=== PATIENT | male | born 1955 | race Caucasian/White ===

== ENCOUNTER 2018-12-03 07:58 | Day surgery (SDC) | payer OTHER ==
[~2018-12-03] VITALS: Ht 162.6 cm; Wt 61.0 kg
[~2018-12-03 07:58] MED LIST: HYDACE10B PO; IBUP800; NAPR500 PO
[2018-12-03] MEDS ORDERED: ASPI81CH PO (08:48)
[2018-12-03] MEDS ORDERED: CYCL10 PO (08:48)
[2018-12-03] MEDS ORDERED: Lisinopril2.5 MG PO (08:49)
[2018-12-03] MEDS ORDERED: Flomax0.4 MG PO (08:49)
[2018-12-03] MEDS ORDERED: TOPI25 PO (08:50)
[2018-12-03] MEDS ORDERED: CHOL10002 PO (08:51)
[2018-12-03] MEDS ORDERED: CLOP75 PO (14:42)
--- NOTE | 2018-12-03 16:01 | NUR ---
DISCHARGE PT REMAINED A&OX3 AND DENIED ANY PAIN DURING RECOVERY. PT DENIED LUNCH PROVIDED. PT ABLE TO HELP STAFF WITH DRESSING AND PIVOTED TO WHEELCHAIR WITH SBA. IV DC'D WITH TIP IN TACT. PLAVIX AND ASPIRIN CONTRACT GONE OVER AND SIGNED. DISCHARGE PAPERWORK GONE OVER WITH PT AND SISTER. SISTER VERBALLY STATED THE UNDERSTANDING OF THE DISCHARGE PAPERWORK GIVEN AND DENIED ANY QUESTIONS AT THIS TIME. SISTER STATED SHE WILL BE STAING AT THE PT'S HOUSE TONIGHT. R [facility] SITE CDI-NO HEMATOMA NOTED. PT STARTED TO BECOME NERVOUS AND STATED HE WANTED TO GET OUT OF HERE. PT WANTED TO HAVE SISTER WHEEL HIM OUT. PT WHEELED OUT BY SISTER IN HIS OWN WHEEL CHAIR WITH BELONGINGS. [facility], ADRESSED TO ANIYA HOLLIS-CONFIRMATION IN PATIENTS CHART.
== END 2018-12-03 16:00 | disposition home or self-care (01) ==
LOC: MHTC 07:58
DX: I70.245 Atherosclerosis of native arteries of left leg with ulceration of other part of foot (principal); I70.243 Atherosclerosis of native arteries of left leg with ulceration of ankle; I10 Essential (primary) hypertension; F17.210 Nicotine dependence, cigarettes, uncomplicated
CPT/HCPCS: 37221; 37226; 75625; 75710; 75716; 75774; 85347; 99152; 99153; C1725; C1760; C1769; C1874; C1876; C1887; C1894; C2623; J1644; J2250; J3010; J7030; J7040; Q9967

== ENCOUNTER 2019-09-29 07:07 | Inpatient (IN) | payer OTHER ==
[~2019-09-29] VITALS: Ht 152.4 cm; Wt 47.0 kg
[~2019-09-29 07:07] MED LIST changes: +ASPI81CH PO; +CHOL10002 PO; +CLOP75 PO; +CYCL10 PO; +Flomax0.4 MG PO; +Lisinopril2.5 MG PO; +TOPI25 PO
[2019-09-29 07:46] LABS: BASOPHILS ABSOLUTE AUTO 0.09 K/mm3 (0.00-0.23); BASOPHILS PERCENT AUTO 1 % (0-2); EOSINOPHILS ABSOLUTE AUTO 0.16 K/mm3 (0.00-0.68); EOSINOPHILS PERCENT AUTO 1 % (0-6); Hematocrit 44.1 % (37.0-53.0); Hemoglobin 14.4 g/dL (13.5-17.5); IMMATURE GRAN ABSOLUTE AUTO 0.05 K/mm3 (0.00-0.10); IMMATURE GRAN PERCENT AUTO 0 % (0-1); LYMPHOCYTES ABSOLUTE AUTO 2.13 K/mm3 (0.84-5.20); LYMPHOCYTES PERCENT AUTO 17 % (21-46); MONOCYTES ABSOLUTE AUTO 0.65 K/mm3 (0.16-1.47); MONOCYTES PERCENT AUTO 5 % (4-13); Mean Corpuscular HGB 31.8 pg (26.0-34.0); Mean Corpuscular HGB Conc 32.7 g/dL (31.5-36.5); Mean Corpuscular Volume 97 fL (80-100); Mean Platelet Volume 9.6 fL (9.1-12.4); NEUTROPHILS ABSOLUTE AUTO 9.28 K/mm3 (1.96-9.15); NEUTROPHILS PERCENT AUTO 75 % (41-73); Platelet Count 317 K/mm3 (150-400); RDW Coefficient Variation 12.2 % (11.7-14.2); RDW Standard Deviation 43.9 fL (35.1-46.3); Red Blood Cell Count 4.53 M/mm3 (4.30-5.90); White Blood Cell Count 12.36 K/mm3 (4.00-11.30)
[2019-09-29 08:01] LABS: Alanine Aminotransfer (ALT/SGP 22 U/L (12-78); Albumin, Blood 4.1 g/dL (3.4-5.0); Alk Phos 85 U/L (50-136); Anion Gap 16 mmol/L (6-16); Aspartate Aminotrans (AST/SGOT 11 U/L (12-37); Bilirubin, Total 0.2 mg/dL (0.1-1.0); Blood Urea Nitrogen 82 mg/dL (8-24); CO2, Blood 16 mmol/L (21-32); Calcium, Blood 8.7 mg/dL (8.5-10.1); Chloride, Blood 106 mmol/L (98-108); Creatinine, Blood 4.31 mg/dL (0.60-1.20); Globulin, Blood 4.3 g/dL (2.2-4.0); Glomerular Filtration Rate 15 (60-); Glucose, Blood 116 mg/dL (70-99); Potassium, Blood 4.2 mmol/L (3.5-5.5); Sodium, Blood 138 mmol/L (136-145); Total Protein, Blood 8.4 g/dL (6.4-8.2); Troponin I <0.015 ng/mL (0.000-0.040)
[2019-09-29 15:12] LABS: Source, Urine Clean Catch
[2019-09-29 15:32] LABS: Appearance, Urine Clear (Clear); Bilirubin, Urine Neg (Neg); Blood, Urine 4+ (Neg); Color, Urine Yellow (P-Yellow); Glucose Qualitative, Urine 1+ (Neg); Ketones, Urine 1+ (Neg); Leukocyte Esterase, Urine Neg (Neg); Nitrite, Urine Neg (Neg); Protein, Urine 2+ (Neg); Specific Gravity, Urine 1.015 (1.003-1.022); Urobilinogen, Urine NORM (Normal)
[2019-09-29 15:41] LABS: Bacteria Few /hpf; Renal Epithelial Few /hpf (0-Rare); Squamous Epithelial Cells Rare /hpf (Few)
[2019-09-29 16:10] LABS: Albumin, Blood 3.5 g/dL (3.4-5.0); Anion Gap 15 mmol/L (6-16); Blood Urea Nitrogen 81 mg/dL (8-24); Bun/Creatinine Ratio 22.6 (12.0-20.0); CO2, Blood 15 mmol/L (21-32); Chloride, Blood 111 mmol/L (98-108); Creatinine, Blood 3.58 mg/dL (0.60-1.20); Glomerular Filtration Rate 18 (60-); Glucose, Blood 112 mg/dL (70-99); Phosphorus, Blood 5.3 mg/dL (2.5-4.9); Potassium, Blood 4.6 mmol/L (3.5-5.5); Sodium, Blood 141 mmol/L (136-145)
--- NOTE | 2019-09-29 17:44 | NUR ---
PATIENT A/OX3, UNABLE TO STATE DATE. CALM AND COOPERATIVE WITH CARE. VSS, ON RA. HX OF CVA WITH L SIDED DEFICIT. W/C BOUND AT BASELINE. SACRUM RED, ABRASIONS TO TOES BILATERAL FROM GETTING THEM STUCK IN HIS W/C. FEET ARE VERY COLD AND TOES CYANOTIC, PICS ON CHART. HX OF PVD WITH STENTS PLACED IN LLE. 18G IV TO R AC WNL, NS INFUSING @ 150/HR. PATIENT ON A RENAL DIET, POOR APPETITE. PERALES PLACED TODAY PER MD ORDER AND U/A SENT TO LAB. CHEST PAIN HAS IMPROVED, PATIENT HAS CHRONIC BACK. PATIENT LIVES AT HOME WITH HIS MOTHER AND HAS A CAREGIVER A FEW DAYS A WEEK.
[2019-09-30 05:12] LABS: Hematocrit 33.9 % (37.0-53.0); Mean Corpuscular HGB 31.8 pg (26.0-34.0); Mean Corpuscular HGB Conc 32.4 g/dL (31.5-36.5); Mean Corpuscular Volume 98 fL (80-100); Mean Platelet Volume 9.6 fL (9.1-12.4); Platelet Count 259 K/mm3 (150-400); RDW Coefficient Variation 12.1 % (11.7-14.2); RDW Standard Deviation 44.1 fL (35.1-46.3); Red Blood Cell Count 3.46 M/mm3 (4.30-5.90); White Blood Cell Count 8.17 K/mm3 (4.00-11.30)
[2019-09-30 05:31] LABS: Anion Gap 11 mmol/L (6-16); Blood Urea Nitrogen 58 mg/dL (8-24); Bun/Creatinine Ratio 23.9 (12.0-20.0); CO2, Blood 14 mmol/L (21-32); Calcium, Blood 7.3 mg/dL (8.5-10.1); Chloride, Blood 117 mmol/L (98-108); Creatinine, Blood 2.43 mg/dL (0.60-1.20); Glomerular Filtration Rate 29 (60-); Glucose, Blood 72 mg/dL (70-99); Phosphorus, Blood 2.7 mg/dL (2.5-4.9); Potassium, Blood 3.8 mmol/L (3.5-5.5); Sodium, Blood 142 mmol/L (136-145)
--- NOTE | 2019-09-30 05:56 | NUR ---
SHIFT SUMMARY PT IS A 63 Y/O MALE, ADMITTED FOR RENAL FAILURE. PT IS A&O X 2-3, UNCERTAIN OF DATE/TIME. WHEELCHAIR BOUND AT BASELINE WITH A L-SIDE DEFICIT FROM A PREVIOUS CVA. PT HAS A POOR APPETITE, AND ONLY WANTED WATER DURING THE NIGHT. BLE TOES ARE CYANOTIC WITH SMALL ABRASIONS NOTED. PT REPORTED LLE MUSCLE SPASMS, NO COMPLAINTS OF PAIN, NAUSEA OR SOB. PT RECEIVING CONTINUOUS NS @ 150 ML/HR. VITAL SIGNS STABLE. NO ACUTE CHANGES IN PT CONDITION NOTED. WILL CONTINUE TO MONITOR AND TREAT PER EMAR UNTIL HAND OFF TO DAY SHIFT RN.
--- NOTE | 2019-09-30 12:35 | NUR ---
Spiritual care visit conducted. Patient is lying in bed with his head under the covers but quickly awakens and uncovers his head at the sound of his name. Patient immediately tells me that he is an "asshole" and that if I could put a gun to his head and pull the trigger then I would be doing him a favor. This led to a long discussion about meaning, purpose, value and dignity. We also discussed his anger at God and his frustrations with the limitations on his life. I highlighted the many things patient has overcome, the good that he does bring to his mother and sister and about the courage he does have everyday. I listen empathically, normalize patient's experience, reinforce helpful attitudes and practices, heard confession and provide pastoral children counselor and prayer. Patient responds well and shows of improved hope and catharsis. I will continue to remain available to patient and family.
--- NOTE | 2019-09-30 18:01 | NUR ---
PATIENT A/OX3, UP TO W/C WITH 1 ASSIST. WC BOUND AT BASELINE DUE TO L SIDED WEAKNESS FROM CVA 20+ YRS AGO. PATIENT VERY PAINFUL TO BLE, DENIED ANY CHEST PAIN. FLEXERIL AND TRAMODOL ORDERED TO TREAT PAIN WITH GOOD RELIEF. TOES CYANOTIC, SCABS TO MUTIPLE TOES FROM WC. PATIENT ATE BETTER THIS SHIFT. SHWITCHED TO REGULAR DIET. KIDNEY FUNCION IMPROVING. FLUIDS CHANGED TO LR@ 200ML/HR X2 BAGS. PATIENT IS CALM AND COOPERATIVE WITH CARE AND CALLS APPROPRIATELY FOR ASSISTANCE.
[2019-10-01 06:11] LABS: Bun/Creatinine Ratio 24.5 (12.0-20.0); Calcium, Blood 7.7 mg/dL (8.5-10.1); Creatinine, Blood 1.51 mg/dL (0.60-1.20); Potassium, Blood 4.1 mmol/L (3.5-5.5)
--- NOTE | 2019-10-01 06:35 | NUR ---
SHIFT SUMMARY PT IS A 63 Y/O MALE, ADMITTED FOR ACUTE RENAL FAILURE. HE IS A&O X 4, MILD DEPRESSED AND WITHDRAWN IN ASPECT AT TIMES, COOPERATIVE WITH CARE. PT IS WHEELCHAIR BOUND AT BASELINE, PERALES IN PLACE FOR RETENTION PATENT AND DRAINING DARK JAYLON URINE. PT FINISHED 2L OF LR @ 200 ML/HR DURING THE NIGHT, CURRENTLY SALINE LOCKED. HE WAS MEDICATED FOR PAIN AND MUSCLE SPASMS IN HIS FEET WITH PRN TRAMADOL AND FLEXERIL. NO COMPLAINTS OF NAUSEA OR SOB. VITAL SIGNS STABLE. NO ACUTE CHANGES IN PT CONDITION NOTED. WILL CONTINUE TO MONITOR AND TREAT PER EMAR UNTIL HAND OFF TO DAY SHIFT RN.
--- NOTE | 2019-10-01 08:22 | NUR ---
CBG 44 ON CHECK THIS MORNING, PT STATES HE FEELS 'NOT GOOD'. 2 PACKETS OF JUICE GIVEN DR ANN CALLED AND INFORMED. RECHECK AT 15 MINUTES IS 55. WILL CONTINUE TO MONITOR, PT NOW CBG ACHS PER DR ANN
[2019-10-02 05:31] LABS: Bun/Creatinine Ratio 20.8 (12.0-20.0); Calcium, Blood 7.8 mg/dL (8.5-10.1); Creatinine, Blood 1.3 mg/dL (0.60-1.20); Potassium, Blood 4.1 mmol/L (3.5-5.5)
--- NOTE | 2019-10-02 06:16 | NUR ---
SHIFT SUMMARY PT [id number]. PT UPSET DURING SHIFT WITH HIS SITUATION, ANGRY THAT HIS PERSONAL WHEELCHAIR WAS NOT HERE. PT ABLE TO BE TALKED TO AND HE CALMED DOWN. PT COOPERATIVE WITH CARE. REPOSITIONING SELF IN BED FREQUENTLY. PT UNABLE TO VOID DURING SHIFT, STRAIGHT CATHED PER PROTOCOL. PT TOLERATED WELL. MEDICATED FOR PAIN PER EMAR.
--- NOTE | 2019-10-02 13:10 | NUR ---
MORNING BLOOD SUGAR WAS 59. APPLE JUICE GIVEN, DR BERKOWITZ INFORMED, TM
--- NOTE | 2019-10-02 17:20 | NUR ---
SHIFT SUMMARY HERB WAS ABLE TO URINATE A FEW TIMES TODAY AFTER NEEDING CATHETERIZATION LAST NIGHT. HE CANNOT URINATE SITTING DOWN IN URINAL, HE NEEDS A01 TO BSC AND CAN URINATE THERE. VERY POOR PO INTAKE, AND CBGS ON THE LOW SIDE. MORNING CBG OF 59--DR BERKOWITZ MADE AWARE. DRANK JUICE AND IT INCREASED. HAD ABD ULTRASOUND THIS MORNING. PT EXPRESSES DESIRE TO GO HOME, EDUCATED ON RISKS OF LEAVING BEFORE SEEING DR VELAZQUEZ ON FRIDAY. CALLED PALLIATIVE, THEY WILL FOLLOW. RECEIVED OXY FOR PAIN TO GOOD EFFECT. TOES STILL PURPLISH. WCTM
[2019-10-03 05:27] LABS: Alanine Aminotransfer (ALT/SGP 21 U/L (12-78); Albumin, Blood 2.9 g/dL (3.4-5.0); Albumin/Globulin Ratio 0.9 (0.8-1.8); Alk Phos 72 U/L (50-136); Anion Gap 11 mmol/L (6-16); Aspartate Aminotrans (AST/SGOT 22 U/L (12-37); Bilirubin, Total 0.4 mg/dL (0.1-1.0); Blood Urea Nitrogen 20 mg/dL (8-24); Bun/Creatinine Ratio 18.2 (12.0-20.0); CHOL/HDL RATIO 6.3; CO2, Blood 20 mmol/L (21-32); Calcium, Blood 7.9 mg/dL (8.5-10.1); Chloride, Blood 110 mmol/L (98-108); Cholesterol 194 mg/dL (50-200); Globulin, Blood 3.3 g/dL (2.2-4.0); Glomerular Filtration Rate >60 (60-); Glucose, Blood 76 mg/dL (70-99); HDL Cholesterol 31 mg/dL (>39); LDL/HDL RATIO 3.6; Low Density Lipoprotein Chol 113 mg/dL (0-110); Potassium, Blood 3.8 mmol/L (3.5-5.5); Sodium, Blood 141 mmol/L (136-145); Total Protein, Blood 6.2 g/dL (6.4-8.2); Triglycerides 250 mg/dL (30-160); Very Low Density Lipoprot Chol 50 mg/dL (6-32)
--- NOTE | 2019-10-03 05:56 | NUR ---
LOADER DEMOLDER SUMMARY PT A/O X4. DENIES SOB, CHEST PAIN, NAUSEA. MEDICATED FOR PAIN ONCE THIS SHIFT. PT CALLS APPROPRIATELY. SLEPT OKAY TONIGHT. VSS. NO ACUTE CHANGES.
--- NOTE | 2019-10-04 04:21 | NUR ---
0230 PT HAS SLEPT WELL SO FAR TONIGHT. NO COMPLAINTS OF PAIN, SOB, DIZZINIESS. PT DID TRY TO GET OUT OF BED ONCE TO USE BSC. BED ALARM ON. 304 REPORT GIVEN TO KAMI MCNULTY WHO WILL ASSUME PT CARE.
--- NOTE | 2019-10-04 06:27 | NUR ---
SHIFT SUMMARY A/O, ABLE TO MAKE NEEDS KNOWN. COOPERATIVE WITH CARE. ANSWERS QUESTIONS APPROPRIATELY. APPEARED TO REST OVERNIGHT. C/O PAIN/DISCOMFORT TO BILATERAL TOES; STATES PAINFUL WITH ANY KIND OF TOUCH, HOWEVER DID NOT ASK FOR ANY PAIN MEDICATIONS FROM THIS RN AFTER ASSUMPTION OF CARE. VSS, HOWEVER HYPERTENSIVE WHICH APPEARS ON TREND WITH PREVIOUS PRESSURES. FEBRILE @ 99.0. NO OTHER ACUTE CHANGES NOTED SINCE ASSUMPTION OF CARE. BED REMAINS IN LOWEST POSITION; ALARM ON. CALL LIGHT AND BELONGINGS WITHIN REACH. WCTM. REPORT TO ONCOMING RN.
--- NOTE | 2019-10-04 13:19 | NUR ---
Attempted to visit for advanced care planning and s/s assessment. Pt having procedure with Dr Peña today. Report given to [facility] staff to f/u later in the week.
--- NOTE | 2019-10-04 17:17 | NUR ---
PT A&O X4. PT RE-SCHED FOR REVASCULARIZATION TOMORROW, IV INSERTION ON RIGHT AC 20G. ABLE TO MAKE NEEDS KNOWN, COOPERATIVE. C/O PAIN ON BILAT TOES. MEDICATED PER EMAR. PT DID NOT HAVE ANY BM SINCE 09/27. BOWEL CARE WAS ORDERED TODAY. PT WAS ABLE TO USE THE BATHROOM WITH 2 MAX ASSIST WITH WHEELCHAIR AND GAITBELT. PT WAS PLACED ON REGULAR DIET UNTIL MIDNIGHT TONIGHT. PT WAS ABLE TO TOLERATE FOOD TODAY. NPO AT MIDNIGHT. BED IS IN THE LOWEST POSITION. BED ALARM ON. ONGOING CARE, REPORT TO ONCOMING RN.
--- NOTE | 2019-10-04 17:46 | NUR ---
PT IS ALERT AND ORIENTED X4. I CALLED DR. OSORIO REGARDING TO THE PT HGB WHICH WAS 6.1 THIS MORNING DOWN FROM 8.3 YESTERDAY. 2 UNITS OF BLOOD ADMINISTERED TODAY BECAUSE PT HAD A SUBSTANTIAL AMOUNT OF BLEEDING AFTER SURGEON REMOVED CHRISTINE DRAIN LAST NIGHT. PRESSURE DRESSING INTACT. PT IS ON TELE, A-FLUTTER ABOUT 80S. DENIES SOB, PAIN, OR N/V. PT ON BED ALARM. BED IS IN THE LOWEST POSITION. APPETITE HAS INCREASED, PT TOLERATED REGULAR DIET TODAY. NS WITH 20K INFUSING AT 100ML/HR.
--- NOTE | 2019-10-05 05:40 | NUR ---
SHIFT SUMMARY PT HAS HAD NO ACUTE CHANGES THIS SHIFT, A&O BUT DID BECOME CONFUSED WHEN WAKING DURING THE NIGHT, MEDICATED 1X FOR PAIN, 1X FOR MUSCLE SPASMS, NPO SINCE MIDNIGHT, PT SLEEPING AT THIS TIME, CALL LIGHT IN REACH, BED ALARM ACTIVE, WILL CONT TO MONITOR UNTIL REPORT GIVEN TO DAY RN.
[2019-10-05 07:37] LABS: BASOPHILS ABSOLUTE AUTO 0.05 K/mm3 (0.00-0.23); BASOPHILS PERCENT AUTO 1 % (0-2); EOSINOPHILS ABSOLUTE AUTO 0.28 K/mm3 (0.00-0.68); EOSINOPHILS PERCENT AUTO 3 % (0-6); Hematocrit 31.8 % (37.0-53.0); Hemoglobin 10.6 g/dL (13.5-17.5); IMMATURE GRAN ABSOLUTE AUTO 0.02 K/mm3 (0.00-0.10); IMMATURE GRAN PERCENT AUTO 0 % (0-1); LYMPHOCYTES ABSOLUTE AUTO 1.56 K/mm3 (0.84-5.20); LYMPHOCYTES PERCENT AUTO 18 % (21-46); MONOCYTES ABSOLUTE AUTO 0.57 K/mm3 (0.16-1.47); MONOCYTES PERCENT AUTO 7 % (4-13); Mean Corpuscular HGB 32.2 pg (26.0-34.0); Mean Corpuscular HGB Conc 33.3 g/dL (31.5-36.5); Mean Corpuscular Volume 97 fL (80-100); Mean Platelet Volume 9.5 fL (9.1-12.4); NEUTROPHILS ABSOLUTE AUTO 6.28 K/mm3 (1.96-9.15); NEUTROPHILS PERCENT AUTO 72 % (41-73); Platelet Count 267 K/mm3 (150-400); RDW Coefficient Variation 11.9 % (11.7-14.2); RDW Standard Deviation 42.5 fL (35.1-46.3); Red Blood Cell Count 3.29 M/mm3 (4.30-5.90); White Blood Cell Count 8.76 K/mm3 (4.00-11.30)
[2019-10-05 07:59] LABS: Anion Gap 8 mmol/L (6-16); Blood Urea Nitrogen 21 mg/dL (8-24); Bun/Creatinine Ratio 18.4 (12.0-20.0); CO2, Blood 24 mmol/L (21-32); Calcium, Blood 8.4 mg/dL (8.5-10.1); Chloride, Blood 110 mmol/L (98-108); Creatinine, Blood 1.14 mg/dL (0.60-1.20); Glomerular Filtration Rate >60 (60-); Glucose, Blood 91 mg/dL (70-99); Potassium, Blood 4.1 mmol/L (3.5-5.5); Sodium, Blood 142 mmol/L (136-145)
--- NOTE | 2019-10-05 11:13 | NUR ---
AND EACH ROUNDED ON HIM THIS MORNING. HE TOLD BOTH OF THEM THAT HE FEELS NOTHING IS BEING DONE AND WANTS TO GO HOME INSTEAD OF JUST SITTING HERE. HE DID AGREE WITH BOTH DOCTORS THOUGH TO GET HIS PROCEDURE DONE TODAY. HE HAS DENIED PAIN TODAY BUT HAS RECENT C/O LOTS OF PAIN IN HIS BACK, BOTTOM AND LEGS. SEE WOUND AREA FOR DOCUMENTATION. I APPLIED AN ANKLE PROTECTOR ON THE LEFT THIS AM BECAUSE HE HAS A PRESSURE SORE LATERALLY. HE REFUSED A FOAM DRESSING OVER IT LAST NIGHT. HIS TOES ARE DOCUMENTED. HE WAS NPO FOR THE PROCEDURE EXCEPT MEDS.
--- NOTE | 2019-10-05 11:23 | NUR ---
TO [facility] VIA BED AT 1115 FOR REVASCULARIZATION PROCEDURE.
--- NOTE | 2019-10-05 14:23 | NUR ---
Pt resting in bed upon arrival. Pt had procedure earlier today. Pt reports 8/10 pain in his lower extremities. Pt denies nausea and dyspnea. Engaged in therapeutic discussion regarding advanced care planning. Pt reports living with her 90 year old mother. Pt reports at baseline ability to transfer himself to wheelchair. Offered therapeutic listening as Pt reports little success with physical therapy in the past. Pt reports not caring for the gate physical therapy was teaching him to use. Pt also reports inability to use his left arm and does not attempt to rehabilitate it due to pain. Suggested the more he works with it the potential for less pain. Continued therapeutic listening. Educated Pt on the importance of routine conversations with PCP and complying with recommendations to prevent further decline. Educated on the importance of establishing multiple plans with PCP as his chronic illnesses progress. Pt expresses appreciation of visit and reports no other concerns. Spoke with Bedside RN, discussed case and reported Pt's pain. Palliative Care will remain available.
--- NOTE | 2019-10-05 17:54 | NUR ---
SHIFT SUMMARY RECEIVED TELEPHONE REPORT FROM HAMLET IBRAHIM ON MEDICAL UNIT AND PROFESSOR OF GERMAN AT BEDSIDE. PT TO ROOM AT 1247 POST ANGIO. PT ORIENTED TO ROOM AND CALL LIGHT; EDUCATED ON LEG RESTRICTIONS; APPEARS TO BE AGREEABLE AT TIME; LATER DURING SHIFT, PT SITTING UP PRIOR TO FULL REOVERY OF R GROIN SITE. THIS AFTERNOON RIGHT GROIN SITE WITH AQUASEAL DRESSING TO SITE; NO BLEEDING, BRUISING OR HEMATOMA NOTED; THIS EVENING AFTER PT SAT UP; SMALL AMOUNT OF BRUISING AT SITE, WILL CONTINUE TO MONITOR. PT A&Ox2; PT IRRITABLE AND NONCOMPLIANT WITH RECOVERY. PT DENIES PAIN, CHEST PAIN/PRESSURE, SOB, NAUSEA AND DIZZINESS FOR THIS RN T/O SHIFT. ELEVATED BP AND HR THIS AFTERNOON. WILL CONTINUE TO MONITOR UNTIL REPORT GIVEN TO ONCOMING RN.
--- NOTE | 2019-10-05 20:56 | NUR ---
ASSUMED CARE OF PATIENT AT APPROXIMATELY 1905 FROM CHASE Christianson RN. PATIENT ALERT AND ORIENTED TO SELF, AND LOCATION; FORGETFUL AT TIMES. PATIENT REPORTS CHRONIC PAIN IN HIS BACK AND FEET. FEET ARE BURNING AND TOUCH INCREASES PAIN. PATIENT S/P REVASC TODAY. PATIENT W/C BOUND AT BASELINE; LEFT SIDE FLACCID. AQUASEAL TO RIGHT GROIN WITH SOME BRUISING NOTED; NO S/S OF BLEEDING OR HEMATOMA. SR ON TELE; OXYGEN SATURATION ABOVE 90% ON ROOM AIR. PATIENT PULLS TELE LEADS OFF AT TIMES. PIV S/L. 1-2 ASSIST OUT OF BED. PATIENT CURRENTLY RESTING IN BED; CALL LIGHT IN REACH; BED IN LOWEST POSISTION; BED ALARM ON; WILL CONTINUE TO MONITOR AND ASSESS UNTIL END OF SHIFT.
--- NOTE | 2019-10-05 21:32 | NUR ---
AT 2114 [facility] REPORTS HE BLEEDING. WALK INTO ROOM AND PATIENT SITTING UP IN BED LEANING OVER HOLDING HIS RIGHT BIG TOE. PATIENT DRESSING ON RIGHT GROIN FILLED WITH BLOOD; MANUAL PRESSURE HELD BY HIS RN AND PATIENT INSTRUCTED TO LAY FLAT; RIGHT TOES APPEAR MORE PURPLE. PATIENT REPORTS HE KNOWS WHATS ABOUT TO HAPPEN. PATIENT REPORTS HE DIDNT THINK I HAD ENOUGH EXCITEMENT TONIGHT SO HE THOUGHT I COULD USE SOME MORE EXCITEMENT. MANUAL PRESSURE HELD BY MARK Sierra RN AND SENIOR ARCHITECT/DESIGN MANAGER COURTNEY Elise RN. A 50 CENT PIECE SIZE CLOT CAME OUT OF DRESSING. PATIENT REPORTS HIS RIGHT FOOT FEELS BETTER; TOES BECAME LESS PURPLE; NO CHANGES TO PULSES OR VITAL SIGNS. MANUAL PRESSURE HAS BEEN HELD FOR 21 MINUTES SO FAR; NO MORE BLEEDING NOTED OR HEMATOMA; BRUISING NOTED. SENIOR ARCHITECT/DESIGN MANAGER TO APPLY MERVIN DRESSING TO SITE AND PATIENT INSTRUCTED NO TO SIT UP.
--- NOTE | 2019-10-05 23:51 | NUR ---
HEART RATE IN 60'S; OTIS ASHLEY IN UNIT AND NOTIFIED; WILL CONTINUE TO MONITOR AND ASSESS UNTIL END OF SHIFT. PATIENT SLEEPING.
--- NOTE | 2019-10-06 06:10 | NUR ---
PATIENT SLEPT ABOUT SEVEN HOURS LAST NIGHT; REFUSED REPOSISTIONING. PATIENT REPORTED THAT ULTRAM DECREASED PAIN BUT PAIN WAS KEEPING HIM AWAKE; DISCUSSED WITH OTIS ASHLEY AND RECIEVED ORDER FOR ONE TIME DOSE OF OXYCODONE. PATIENT REPORTS GOOD RESULTS AND REQUESTED ANOTHER DOSE; DISCUSSED WITH DR. ESPINOSA AND ORDER FOR ANOTHER ONE TIME DOSE. NO CHANGE TO RIGHT GROIN SITE; SOME BRUISING NOTED BUT NO BLEEDING. SITE CHECKED EVERY 1-15 MINUTES FOR FIRST FEW HOURS THEN EVERY 30 MINUTES; NO CHANGE NOTED. WILL CONTINUE TO MONITOR AND ASSESS UNTIL END OF SHIFT.
[2019-10-06 09:03] LABS: BASOPHILS ABSOLUTE AUTO 0.05 K/mm3 (0.00-0.23); BASOPHILS PERCENT AUTO 1 % (0-2); EOSINOPHILS ABSOLUTE AUTO 0.27 K/mm3 (0.00-0.68); EOSINOPHILS PERCENT AUTO 3 % (0-6); Hematocrit 30.8 % (37.0-53.0); Hemoglobin 10.1 g/dL (13.5-17.5); IMMATURE GRAN ABSOLUTE AUTO 0.04 K/mm3 (0.00-0.10); IMMATURE GRAN PERCENT AUTO 0 % (0-1); LYMPHOCYTES ABSOLUTE AUTO 1.81 K/mm3 (0.84-5.20); LYMPHOCYTES PERCENT AUTO 17 % (21-46); MONOCYTES ABSOLUTE AUTO 0.75 K/mm3 (0.16-1.47); MONOCYTES PERCENT AUTO 7 % (4-13); Mean Corpuscular HGB 32.5 pg (26.0-34.0); Mean Corpuscular HGB Conc 32.8 g/dL (31.5-36.5); Mean Corpuscular Volume 99 fL (80-100); Mean Platelet Volume 9.7 fL (9.1-12.4); NEUTROPHILS ABSOLUTE AUTO 7.48 K/mm3 (1.96-9.15); NEUTROPHILS PERCENT AUTO 72 % (41-73); Platelet Count 267 K/mm3 (150-400); RDW Standard Deviation 44.3 fL (35.1-46.3); Red Blood Cell Count 3.11 M/mm3 (4.30-5.90)
[2019-10-06 09:38] LABS: Anion Gap 6 mmol/L (6-16); Blood Urea Nitrogen 21 mg/dL (8-24); Bun/Creatinine Ratio 18.8 (12.0-20.0); CO2, Blood 25 mmol/L (21-32); Calcium, Blood 8.1 mg/dL (8.5-10.1); Chloride, Blood 109 mmol/L (98-108); Creatinine, Blood 1.12 mg/dL (0.60-1.20); Glomerular Filtration Rate >60 (60-); Glucose, Blood 84 mg/dL (70-99); Potassium, Blood 3.8 mmol/L (3.5-5.5); Sodium, Blood 140 mmol/L (136-145)
--- NOTE | 2019-10-06 11:58 | NUR ---
PT HELD NPO THIS AM; AGREEABLE TO REVASC OF RLE.
--- NOTE | 2019-10-06 19:17 | NUR ---
SHIFT SUMMARY PT A&Ox3; FORGETFUL. PT MORE COMPLAINT WITH RESTRICTIOSN THEN YESTERDAY PT HAD REVASC TO RIGHT LEG WITH LEFT GROIN SITE; SMALL HEMATOMA NOTED UPON ARRIVAL TO ROOM WHICH HAS REMAINED UNCHANGED. BLOOD OOZING NOTED APPROX DIME SIZE THIS EVENING; NO CHANGES OVER AN HOUR AFTER FINDING. PT REPORT BACK PAIN, MEDICATED x1 PER EMAR. PT DENIES NAUSEA, SOB, DIZZINESS AND CHEST PAIN. VSS. NO OTHER ACUTE CHANGES NOTED. REPORT GIVEN TO ONCOMING RN
--- NOTE | 2019-10-06 20:30 | NUR ---
ASSUMED CARE Received report from Caroline MCNULTY, and assumed care at 1900. VVS. SBP 138 at time of arrival. Pt is alert and oriented, answering questions appropriately. He is S/P after a RLE revascularization. Left groin access site visualized with HAMLET Velazquez and HAMLET Young. Breathing appears unlabored on room air. Pt has a history of CVA with left-sided deficits. Pt reports intermittent pain to his LLE due to muscle spasming. Pt reports using a wheelchair at home; per HAMLET Velazquez, pt requires a 1-2 person assist. No acute concerns to note at shift start.
--- NOTE | 2019-10-07 00:33 | NUR ---
Pt found sitting up in bed. Pt disoriented, thinking he is home and asking for his wheelchair. Reorientation attempted with little success, pt still maintains that he is home. Pt has become increasingly irritable this shift, stating "Just cut the thing off" referring to his left leg during intermittant spasms. Pt offered therapeutic listening and reassurance this shift. Calm at this time.
--- NOTE | 2019-10-07 06:17 | NUR ---
SHIFT SUMMARY Pt remained alert and oriented with a single episode of confusion occuring earlier this morning upon waking up, stating "There was a plant and a lamp beside my bed, and my wheelchair was here too." Pt was reoriented to room and this student nurse and HAMLET Young priovided active listening and therapeutic reassurance. During this same episode, pt was incontinent. Pt was calm and cooperative. VSS. SBP 148. Breathing appeared unlabored on room air. Pt is S/P RLE revascularization. The left groin access site remained within normal limits; a nickel-size amount of blood was noted at the beginning of shift, no changes noted throughout shift. Distal pulses are palpable. Pt is a 1-2 person assisit, but was bedfast the entire shift. Pt has a history of a CVA with left-sided deficits, and complains of intermittent left-sided pain secondary to muscle spasming. No acute changes or concerns noted.
--- NOTE | 2019-10-07 07:38 | NUR ---
Upon bedside report, pt had spontaneous L Groing site bleed/ooze. pressure applied and dry pan charger in room to change existant dressing to monitor for degree of oozing. Distal pedal pulses remain strong. Hand off given to HAMLET Peña who assumes care.
--- NOTE | 2019-10-07 07:46 | NUR ---
ASSUMED PATIENT CARE. PATIENT RESTING COMFORTABLY IN BED, CONVERSING WITH NURSING STAFF. ON PALPATION LEFT AND RIGHT GROIN SITES STARTED OOZING BLOOD. R GROIN SITE CLEANED AND TAGADERM APPLIED, NO ADDITIONAL BLEEDING NOTED. HELD PRESSURE ON LEFT GROIN SITE, BLEEDING STOPPED, REDRESSED BY CHARGE NURSE REJI MCNULTY. NO ADDITIONAL BLEEDING NOTED. NEW BRUISING NOTED AT LEFT HIP FROM REPORT OF SOLAR SALES ENERGY ADVISOR. WCTM.
[2019-10-07 09:01] LABS: BASOPHILS ABSOLUTE AUTO 0.05 K/mm3 (0.00-0.23); BASOPHILS PERCENT AUTO 0 % (0-2); EOSINOPHILS ABSOLUTE AUTO 0.21 K/mm3 (0.00-0.68); EOSINOPHILS PERCENT AUTO 2 % (0-6); Hematocrit 31.1 % (37.0-53.0); Hemoglobin 10.2 g/dL (13.5-17.5); IMMATURE GRAN ABSOLUTE AUTO 0.06 K/mm3 (0.00-0.10); IMMATURE GRAN PERCENT AUTO 1 % (0-1); LYMPHOCYTES ABSOLUTE AUTO 1.37 K/mm3 (0.84-5.20); LYMPHOCYTES PERCENT AUTO 11 % (21-46); MONOCYTES ABSOLUTE AUTO 0.88 K/mm3 (0.16-1.47); MONOCYTES PERCENT AUTO 7 % (4-13); Mean Corpuscular HGB 32.3 pg (26.0-34.0); Mean Corpuscular HGB Conc 32.8 g/dL (31.5-36.5); Mean Corpuscular Volume 98 fL (80-100); Mean Platelet Volume 9.7 fL (9.1-12.4); NEUTROPHILS ABSOLUTE AUTO 10.29 K/mm3 (1.96-9.15); NEUTROPHILS PERCENT AUTO 80 % (41-73); Platelet Count 274 K/mm3 (150-400); RDW Coefficient Variation 11.9 % (11.7-14.2); RDW Standard Deviation 43.2 fL (35.1-46.3); Red Blood Cell Count 3.16 M/mm3 (4.30-5.90); White Blood Cell Count 12.86 K/mm3 (4.00-11.30)
[2019-10-07 09:20] LABS: Anion Gap 5 mmol/L (6-16); Blood Urea Nitrogen 20 mg/dL (8-24); Bun/Creatinine Ratio 18.2 (12.0-20.0); CO2, Blood 26 mmol/L (21-32); Calcium, Blood 8.6 mg/dL (8.5-10.1); Chloride, Blood 108 mmol/L (98-108); Glomerular Filtration Rate >60 (60-); Glucose, Blood 104 mg/dL (70-99); Magnesium, Blood 1.7 mg/dL (1.6-2.4); Potassium, Blood 3.9 mmol/L (3.5-5.5); Sodium, Blood 139 mmol/L (136-145)
[2019-10-07] MEDS ORDERED: ACET325 PO (11:24)
[2019-10-07] MEDS ORDERED: DOCU100 PO (11:25)
[2019-10-07] MEDS ORDERED: ATOR20 PO (11:25)
[2019-10-07] MEDS ORDERED: LIDO700A20 TOP (11:28)
[2019-10-07] MEDS ORDERED: Milk Of Ma400 MG/5 M PO (11:42)
[2019-10-07] MEDS ORDERED: METO25ER PO (11:44)
[2019-10-07] MEDS ORDERED: NICO21TP TOP (11:44)
[2019-10-07] MEDS ORDERED: ROXYBOND5 MG PO (11:48)
[2019-10-07] MEDS ORDERED: PRAM.5 PO (11:48)
[2019-10-07] MEDS ORDERED: SENN187 PO (11:49)
[2019-10-07] MEDS ORDERED: TRAM50 PO (11:50)
--- NOTE | 2019-10-07 13:59 | NUR ---
PATIENT PROVIDED DISCHARGE INFO REGARDING FOLLOW UP PLANS, NEW MEDICATIONS AND WOUND CARE. NO SIGNS OF ACUTE DISTRESS.
== END 2019-10-07 14:55 | disposition home or self-care (01) | DRG 674 ==
LOC: ER 07:07 → MEDS 07:08 → PCU 10-05 13:15
PROVIDERS: Emergency Medicine; Hospitalist; Internal Medicine; ADMIT Internal Medicine
PROC: B41D1ZZ Fluoroscopy of Aorta and Bilateral Lower Extremity Arteries using Low Osmolar Contrast (ICD-10-PCS; principal; 2019-10-05)
PROC: 047J3DZ Dilation of Left External Iliac Artery with Intraluminal Device, Percutaneous Approach (ICD-10-PCS; 2019-10-05)
PROC: 047L3Z1 Dilation of Left Femoral Artery using Drug-Coated Balloon, Percutaneous Approach (ICD-10-PCS; 2019-10-05)
PROC: 047N3ZZ Dilation of Left Popliteal Artery, Percutaneous Approach (ICD-10-PCS; 2019-10-05)
PROC: 04CL3ZZ Extirpation of Matter from Left Femoral Artery, Percutaneous Approach (ICD-10-PCS; 2019-10-06)
PROC: 04CN3ZZ Extirpation of Matter from Left Popliteal Artery, Percutaneous Approach (ICD-10-PCS; 2019-10-06)
PROC: 047L3Z1 Dilation of Left Femoral Artery using Drug-Coated Balloon, Percutaneous Approach (ICD-10-PCS; 2019-10-06)
PROC: 047N3Z1 Dilation of Left Popliteal Artery using Drug-Coated Balloon, Percutaneous Approach (ICD-10-PCS; 2019-10-06)
PROC: 047Q3ZZ Dilation of Left Anterior Tibial Artery, Percutaneous Approach (ICD-10-PCS; 2019-10-06)
PROC: B41G1ZZ Fluoroscopy of Left Lower Extremity Arteries using Low Osmolar Contrast (ICD-10-PCS; 2019-10-06)
DX: N17.9 Acute kidney failure, unspecified (principal); I69.354 Hemiplegia and hemiparesis following cerebral infarction affecting left non-dominant side; E87.2 Acidosis; I70.262 Atherosclerosis of native arteries of extremities with gangrene, left leg; R64 Cachexia; I10 Essential (primary) hypertension; N40.0 Benign prostatic hyperplasia without lower urinary tract symptoms; F17.210 Nicotine dependence, cigarettes, uncomplicated; Z79.82 Long term (current) use of aspirin; E86.0 Dehydration; X50.9XXA Other and unspecified overexertion or strenuous movements or postures, initial encounter; I73.89 Other specified peripheral vascular diseases; E16.2 Hypoglycemia, unspecified; Z99.3 Dependence on wheelchair; G25.81 Restless legs syndrome; N40.1 Benign prostatic hyperplasia with lower urinary tract symptoms; R33.9 Retention of urine, unspecified; I71.9 Aortic aneurysm of unspecified site, without rupture; I70.203 Unspecified atherosclerosis of native arteries of extremities, bilateral legs; I70.235 Atherosclerosis of native arteries of right leg with ulceration of other part of foot; I70.245 Atherosclerosis of native arteries of left leg with ulceration of other part of foot; Z68.21 Body mass index [BMI] 21.0-21.9, adult
CPT/HCPCS: 36415; 37221; 37224; 37225; 37228; 37232; 71045; 75625; 75710; 75716; 75774; 76705; 76770; 80048; 80053; 80061; 80069; 81001; 82947; 83735; 84484; 85025; 85027; 85347; 93005; 93010; 93925; 97162; 97165; 97168; 97530; 99152; 99153; 99285-25; A9270; A9270-GY; C1714; C1725; C1760; C1769; C1876; C1884; C1887; C1894; C2623; J1644; J1650; J2250; J2405; J3010; J7030; J7042; J7120; Q9967

== ENCOUNTER 2019-10-07 20:56 | Emergency (ER) | payer OTHER ==
[~2019-10-07] VITALS: Ht 149.9 cm; Wt 55.3 kg
[~2019-10-07 20:56] MED LIST changes: +ACET325 PO; +ATOR20 PO; +DOCU100 PO; +LIDO700A20 TOP; +METO25ER PO; +Milk Of Ma400 MG/5 M PO; +NICO21TP TOP; +PRAM.5 PO; +ROXYBOND5 MG PO; +SENN187 PO; +TRAM50 PO
[2019-10-07 21:15] LABS: BASOPHILS ABSOLUTE AUTO 0.05 K/mm3 (0.00-0.23); BASOPHILS PERCENT AUTO 0 % (0-2); EOSINOPHILS PERCENT AUTO 1 % (0-6); Hematocrit 30.5 % (37.0-53.0); Hemoglobin 10.2 g/dL (13.5-17.5); IMMATURE GRAN ABSOLUTE AUTO 0.05 K/mm3 (0.00-0.10); IMMATURE GRAN PERCENT AUTO 0 % (0-1); LYMPHOCYTES ABSOLUTE AUTO 1.89 K/mm3 (0.84-5.20); LYMPHOCYTES PERCENT AUTO 16 % (21-46); MONOCYTES PERCENT AUTO 7 % (4-13); Mean Corpuscular HGB 32.8 pg (26.0-34.0); Mean Corpuscular HGB Conc 33.4 g/dL (31.5-36.5); Mean Corpuscular Volume 98 fL (80-100); Mean Platelet Volume 9.7 fL (9.1-12.4); NEUTROPHILS ABSOLUTE AUTO 9.12 K/mm3 (1.96-9.15); NEUTROPHILS PERCENT AUTO 75 % (41-73); Platelet Count 319 K/mm3 (150-400); RDW Coefficient Variation 11.9 % (11.7-14.2); Red Blood Cell Count 3.11 M/mm3 (4.30-5.90); White Blood Cell Count 12.11 K/mm3 (4.00-11.30)
[2019-10-07 21:34] LABS: Albumin/Globulin Ratio 0.8 (0.8-1.8); Bilirubin, Total 0.3 mg/dL (0.1-1.0); Bun/Creatinine Ratio 19.1 (12.0-20.0); Calcium, Blood 8.6 mg/dL (8.5-10.1); Creatinine, Blood 1.31 mg/dL (0.60-1.20); Globulin, Blood 3.7 g/dL (2.2-4.0); Potassium, Blood 3.5 mmol/L (3.5-5.5); Total Protein, Blood 6.7 g/dL (6.4-8.2)
== END 2019-10-08 02:02 | disposition home or self-care (01) ==
LOC: ER 20:56
PROVIDERS: Emergency Medicine
DX: I99.9 Unspecified disorder of circulatory system (principal); I10 Essential (primary) hypertension; N40.0 Benign prostatic hyperplasia without lower urinary tract symptoms; N19 Unspecified kidney failure; Z86.73 Personal history of transient ischemic attack (TIA), and cerebral infarction without residual deficits; Z79.82 Long term (current) use of aspirin; Z79.899 Other long term (current) drug therapy; F17.210 Nicotine dependence, cigarettes, uncomplicated
CPT/HCPCS: 80053; 85025; 93005; 93010; 99284-25; J7030

== ENCOUNTER → 2020-01-21 | Outpatient (CLI) | payer OTHER ==
[2020-01-21 09:29] LABS: Bun/Creatinine Ratio 15.9 (12.0-20.0); Calcium, Blood 8.7 mg/dL (8.5-10.1); Creatinine, Blood 1.57 mg/dL (0.60-1.20); Potassium, Blood 4.3 mmol/L (3.5-5.5)
== END | disposition home or self-care (01) ==
LOC: LAB 09:07 → LAB SHORT 09:07
PROVIDERS: Radiology Diagnostic Radiology
DX: I70.213 Atherosclerosis of native arteries of extremities with intermittent claudication, bilateral legs (principal); I71.9 Aortic aneurysm of unspecified site, without rupture; I10 Essential (primary) hypertension
CPT/HCPCS: 80048

== ENCOUNTER 2020-06-16 11:53 | Emergency (ER) | payer MEDICARE ==
[~2020-06-16] VITALS: Ht 162.6 cm; Wt 54.4 kg
== END 2020-06-16 17:12 | disposition home or self-care (01) ==
LOC: ER 11:53
DX: R05 Cough (principal); G89.29 Other chronic pain; I69.354 Hemiplegia and hemiparesis following cerebral infarction affecting left non-dominant side; F17.210 Nicotine dependence, cigarettes, uncomplicated; Z79.899 Other long term (current) drug therapy; Z79.02 Long term (current) use of antithrombotics/antiplatelets; Z79.82 Long term (current) use of aspirin
CPT/HCPCS: 71046; 99284-25

== ENCOUNTER 2020-07-31 20:57 | Emergency (ER) | payer OTHER ==
[~2020-07-31] VITALS: Ht 162.6 cm; Wt 59.0 kg
== END 2020-08-01 01:35 | disposition home or self-care (01) ==
LOC: ER 20:57
DX: M54.6 Pain in thoracic spine (principal); G89.29 Other chronic pain; Z79.82 Long term (current) use of aspirin; Z79.02 Long term (current) use of antithrombotics/antiplatelets; Z79.899 Other long term (current) drug therapy
CPT/HCPCS: 71046; 93005; 93010; 99284-25; A9270

== ENCOUNTER 2021-03-14 10:13 | Emergency (ER) | payer OTHER ==
[~2021-03-14] VITALS: Ht 162.6 cm; Wt 61.2 kg
--- NOTE | 2021-03-15 11:35 | NUR ---
Received referral from ED nurse rn medicare (Malissa Grover) on 03/14/2021 at 1615. Patient was seen in the ED and discharged with orders for home health and elected [facility]. Contacted patient at number provided on demographic sheet. Unfortunately patient did not answer. Left message asking for return phone call. Return phone call from patient's sister (Karla Law) at [phone] to further discuss the above. Patient's sister is agreeable to the above. Discussed homebound status definition with patient's sister. Patient's sister verbalized understanding. Discussed what home health is vs what it is not (in home caregivers/housekeeping). Patient's sister verbalized understanding. Discussed the next steps in the process of an initial assessment to determine frequency of visits. Again patient's sister verbalized understanding. Offered a chance for patient's sister to ask questions regarding the above of which there were none. Gathered all supporting documentation for referral (face sheet, ED documentation and nurse rn medicare notes) and sent to [facility] for review. No further interventions required. [facility] Referral Liaison
== END 2021-03-14 18:39 | disposition home or self-care (01) ==
LOC: ER 10:13
DX: I69.354 Hemiplegia and hemiparesis following cerebral infarction affecting left non-dominant side (principal); I10 Essential (primary) hypertension; G40.909 Epilepsy, unspecified, not intractable, without status epilepticus; F17.210 Nicotine dependence, cigarettes, uncomplicated; Z79.82 Long term (current) use of aspirin; Z79.899 Other long term (current) drug therapy; W07.XXXA Fall from chair, initial encounter
CPT/HCPCS: 93005; 93010; 99283-25

== ENCOUNTER 2021-03-28 12:20 | Emergency (ER) | payer OTHER ==
[~2021-03-28] VITALS: Ht 162.6 cm; Wt 59.0 kg
== END 2021-03-28 18:13 | disposition home or self-care (01) ==
LOC: ER 12:20
DX: R07.81 Pleurodynia (principal); G81.94 Hemiplegia, unspecified affecting left nondominant side; Z86.73 Personal history of transient ischemic attack (TIA), and cerebral infarction without residual deficits; I10 Essential (primary) hypertension; G40.909 Epilepsy, unspecified, not intractable, without status epilepticus; F17.210 Nicotine dependence, cigarettes, uncomplicated; W18.30XA Fall on same level, unspecified, initial encounter
CPT/HCPCS: 36415; 70450; 71101; 73502; 93005; 93010; A9270

== ENCOUNTER 2021-03-29 09:04 | Inpatient (IN) | payer OTHER ==
[~2021-03-29] VITALS: Ht 165.1 cm; Wt 46.8 kg
[2021-03-29 09:56] LABS: BASOPHILS ABSOLUTE AUTO 0.08 K/mm3 (0.00-0.23); BASOPHILS PERCENT AUTO 1 % (0-2); EOSINOPHILS ABSOLUTE AUTO 0.01 K/mm3 (0.00-0.68); EOSINOPHILS PERCENT AUTO 0 % (0-6); Hematocrit 43.9 % (37.0-53.0); Hemoglobin 14.1 g/dL (13.5-17.5); IMMATURE GRAN ABSOLUTE AUTO 0.07 K/mm3 (0.00-0.10); IMMATURE GRAN PERCENT AUTO 1 % (0-1); LYMPHOCYTES ABSOLUTE AUTO 1.45 K/mm3 (0.84-5.20); LYMPHOCYTES PERCENT AUTO 10 % (21-46); MONOCYTES ABSOLUTE AUTO 0.69 K/mm3 (0.16-1.47); MONOCYTES PERCENT AUTO 5 % (4-13); Mean Corpuscular HGB Conc 32.1 g/dL (31.5-36.5); Mean Corpuscular Volume 97 fL (80-100); Mean Platelet Volume 9.3 fL (9.1-12.4); NEUTROPHILS ABSOLUTE AUTO 12.63 K/mm3 (1.96-9.15); NEUTROPHILS PERCENT AUTO 85 % (41-73); Platelet Count 321 K/mm3 (150-400); RDW Coefficient Variation 12.7 % (11.7-14.2); Red Blood Cell Count 4.55 M/mm3 (4.30-5.90); White Blood Cell Count 14.93 K/mm3 (4.00-11.30)
[2021-03-29 09:58] LABS: Alanine Aminotransfer (ALT/SGP 39 U/L (12-78); Alk Phos 94 U/L (50-136); Anion Gap 10 mmol/L (6-16); Aspartate Aminotrans (AST/SGOT 31 U/L (12-37); Bilirubin, Total 0.6 mg/dL (0.1-1.0); Blood Urea Nitrogen 29 mg/dL (8-24); Bun/Creatinine Ratio 20.1 (12.0-20.0); CO2, Blood 21 mmol/L (21-32); Calcium, Blood 9.3 mg/dL (8.5-10.1); Chloride, Blood 107 mmol/L (98-108); Creatinine, Blood 1.44 mg/dL (0.60-1.20); Ethanol (Alcohol), Blood, Med <3 mg/dL; Globulin, Blood 3.9 g/dL (2.2-4.0); Glomerular Filtration Rate 49 (60-); Glucose, Blood 101 mg/dL (70-99); Potassium, Blood 4.7 mmol/L (3.5-5.5); Sodium, Blood 138 mmol/L (136-145); Total Protein, Blood 7.9 g/dL (6.4-8.2)
[2021-03-29 10:03] LABS: Base Excess Venous -3.7 mmol/L; Bicarbonate Venous 21.2 mmol/L (24.0-30.0); PCO2 Venous 40.7 mmHg (38-42); pH Blood Venous 7.34 (7.34-7.37)
[2021-03-29 10:54] LABS: Source, Urine Catheter
[2021-03-29 11:04] LABS: Bilirubin, Urine Neg (Neg); Blood, Urine 5+ (Neg); Glucose Qualitative, Urine Neg (Neg); Ketones, Urine 4+ (Neg); Leukocyte Esterase, Urine Neg (Neg); Nitrite, Urine Neg (Neg); Protein, Urine 3+ (Neg); Urobilinogen, Urine NORM (Normal)
[2021-03-29 11:16] LABS: Appearance, Urine Hazy (Clear); Bacteria Not Seen /hpf; Color, Urine Yellow (P-Yellow); Squamous Epithelial Cells Rare /hpf (Few); White Blood Cells, Urine Not Seen /hpf (0-5)
[2021-03-29 11:19] LABS: U Amphetamine Screen Not Detected; U Barbituate Screen Not Detected; U Benzodiazapine Screen Not Detected; U Buprenorphine Screen Not Detected; U Cannabinoids Screen DETECTED; U Cocaine Screen Not Detected; U Methadone Screen Not Detected; U Methamphetamine Screen Not Detected; U Opiates Screen Not Detected; U Oxycodone Screen Not Detected; U Phencyclidine Screen Not Detected; U Propoxyphene Screen Not Detected
[2021-03-29 11:34] LABS: Influenza A, PCR NEGATIVE (NEGATIVE); Influenza B, PCR NEGATIVE (NEGATIVE); Resp Syncytial Virus, PCR NEGATIVE (NEGATIVE); SARS-Cov-2 (COVID-19) PCR, MMC NEGATIVE (NEGATIVE)
[2021-03-29 15:21] LABS: Glucose, CSF 72 mg/dL (40-70)
[2021-03-29 15:49] LABS: Cryptococcus Neoformans/Gattii Not Detected (NOT DETECT); Enterovirus Not Detected (NOT DETECT); Escherichia Coli K1 Not Detected (NOT DETECT); Haemophilus Influenza Not Detected (NOT DETECT); Herpes Simplex Virus 1 Not Detected (NOT DETECT); Herpes Simplex Virus 2 Not Detected (NOT DETECT); Human Herpesvirus 6 Not Detected (NOT DETECT); Human Parechovirus Not Detected (NOT DETECT); Listeria Monocytogenes Not Detected (NOT DETECT); Neisseria Meningitidis Not Detected (NOT DETECT); Streptococcus Agalactiae Not Detected (NOT DETECT); Streptococcus Pneumoniae Not Detected (NOT DETECT); Varicella Zoster Virus Not Detected (NOT DETECT)
--- NOTE | 2021-03-29 16:55 | NUR ---
PATIENT PULLED OUT HIS IV. I WAS CLEANING HIM UP WITH HIS PRIMARY RN BHARGAVI. PATIENT MADE COMMENTS LIKE "I WISH I COULD JUST END IT". COMPLETED [place] SUICIDE RISK SEVERITY SCALE. PATIENT SCORED MODERATE RISK. NOTIFIED BHARGAVI, PRIMARY RN. GUIDO MCNULTY SITTING WITH PATIENT IN ROOM FOR 1:1 MONITORING. MENTAL HEALTH ENVIRONMENT RISK ASSESSMENT FORM COMPLETED AND PLACED IN CHART.
--- NOTE | 2021-03-29 17:32 | NUR ---
VSS WITH EXCEPTION TO BP- PT STATED " HAVE NOT TAKEN MY HOME BP MEDS IN A FEW DAYS," PRN ORDERED. TMAX=99.5F, COOLING MEASURES UTILIZED. INCONTINENT WITH AUO. NO BM. REMAINS NPO AT THIS TIME. PT PLACED ON SI PRECAUTIONS D/T PT STATED "SOMETIMES I JUST WANT TO END THINGS." LP SITE REMAINS CLEAN, DRY, INTACT. FREQUENT ROUNDS TO ENSURE PT SAFETY. PT IN NO APPARENT DISTRESS AT THIS TIME. WILL CONTINUE TO MONITOR UNTIL TRANSFER OF CARE TO ONCOMING RN.
[2021-03-29 17:50] LABS: Appearance, CSF Bloody (Clear); Color, CSF Red (No Color)
--- NOTE | 2021-03-29 19:10 | NUR ---
PATIENT MOVED FROM U-09 TO U-08 AT APPROX 1900. MENTAL HEALTH ENVIRONMENT RISK ASSESSMENT FORM COMPLETED FOR ROOM U-08. PATIENT ON CAMERA MONITORING.
[2021-03-30 04:11] LABS: BASOPHILS ABSOLUTE AUTO 0.08 K/mm3 (0.00-0.23); BASOPHILS PERCENT AUTO 1 % (0-2); EOSINOPHILS ABSOLUTE AUTO 0.18 K/mm3 (0.00-0.68); EOSINOPHILS PERCENT AUTO 2 % (0-6); Hematocrit 37.6 % (37.0-53.0); Hemoglobin 12.2 g/dL (13.5-17.5); IMMATURE GRAN ABSOLUTE AUTO 0.05 K/mm3 (0.00-0.10); IMMATURE GRAN PERCENT AUTO 1 % (0-1); LYMPHOCYTES PERCENT AUTO 22 % (21-46); MONOCYTES PERCENT AUTO 10 % (4-13); Mean Corpuscular HGB 31.1 pg (26.0-34.0); Mean Corpuscular HGB Conc 32.4 g/dL (31.5-36.5); Mean Corpuscular Volume 96 fL (80-100); Mean Platelet Volume 8.9 fL (9.1-12.4); NEUTROPHILS ABSOLUTE AUTO 7.07 K/mm3 (1.96-9.15); NEUTROPHILS PERCENT AUTO 65 % (41-73); Platelet Count 228 K/mm3 (150-400); RDW Coefficient Variation 12.5 % (11.7-14.2); RDW Standard Deviation 43.7 fL (35.1-46.3); Red Blood Cell Count 3.92 M/mm3 (4.30-5.90); White Blood Cell Count 10.88 K/mm3 (4.00-11.30)
[2021-03-30 04:33] LABS: Albumin, Blood 3.1 g/dL (3.4-5.0); Albumin/Globulin Ratio 0.9 (0.8-1.8); Bun/Creatinine Ratio 17.8 (12.0-20.0); Calcium, Blood 8.9 mg/dL (8.5-10.1); Creatinine, Blood 1.35 mg/dL (0.60-1.20); Globulin, Blood 3.3 g/dL (2.2-4.0); Total Protein, Blood 6.4 g/dL (6.4-8.2)
--- NOTE | 2021-03-30 06:17 | NUR ---
SHIFT SUMMARY PATIENT IS A CONFUSED MAN ONLY ORIENTED TO SELF, FOLLOWING SOME COMMANDS, WITH L SIDED HEMIPARESIS FROM PREVIOUS CVA. SI MODERATE RISK SO PRECUATIONS IN PLACE AND ON CAMERA. RESTLESS AND PULLING LINES MOST OF SHIFT. VSS. ON RA. SR ON THE MONITOR. INCONTINENT OF URINE WITH ATTENDS IN PLACE. PASSED BEDSIDE SWALLOW FOR MEDS BUT REMAINS NPO OTHERWISE. IV FLUIDS RUNNING PER ORDER. NO ACUTE CONCERNS AT THIS TIME. WILL CONTINUE PLAN OF CARE UNTIL REPORT GIVEN TO DAYSHIFT RN.
--- NOTE | 2021-03-30 08:00 | NUR ---
PT RE-EVALUATED, NO LONGER EXPRESSING THOUGHTS OF SI. NOTIIED, SI PRECAUTIONS D/C'D.
--- NOTE | 2021-03-30 18:09 | NUR ---
VSS WITH EXCEPTION TO BP- PRN HYDRALIZINE ADMIN X2. NO C/O PAIN. AFEBRILE. INCONTINENT WITH AUO. NO BM. DIET ADVANCED. PENDING EEG. FREQUENT ROUNDS TO ENSURE PT SAFETY. PT IN NO APPARENT DISTRESS AT THIS TIME. WILL CONTINUE TO MONITOR UNTIL TRANSFER OF CARE TO ONCOMING RN.
[2021-03-31 04:09] LABS: Hematocrit 37.2 % (37.0-53.0); Hemoglobin 12.4 g/dL (13.5-17.5); Mean Corpuscular HGB 31.2 pg (26.0-34.0); Mean Corpuscular HGB Conc 33.3 g/dL (31.5-36.5); Mean Corpuscular Volume 94 fL (80-100); Mean Platelet Volume 8.8 fL (9.1-12.4); Platelet Count 217 K/mm3 (150-400); RDW Coefficient Variation 12.1 % (11.7-14.2); RDW Standard Deviation 42.4 fL (35.1-46.3); Red Blood Cell Count 3.97 M/mm3 (4.30-5.90); White Blood Cell Count 10.48 K/mm3 (4.00-11.30)
[2021-03-31 04:30] LABS: Bun/Creatinine Ratio 17.1 (12.0-20.0); Calcium, Blood 9.1 mg/dL (8.5-10.1); Creatinine, Blood 1.29 mg/dL (0.60-1.20); Magnesium, Blood 1.7 mg/dL (1.6-2.4)
--- NOTE | 2021-03-31 06:09 | NUR ---
SHIFT SUMMARY PATIENT WAS A&OX4 FOR MOST OF SHIFT, FOLLOWING COMMANDS, WITH LEFT SIDED HEMIPARESIS FROM PREVIOUS CVA. BECAME MORE CONFUSED AND RESTLESS EARLY THIS AM AND WAS HARDER TO REORIENT. VSS. ON RA. FLUIDS RUNNING PER ORDER. SEIZURE PRECAUTIONS IN PLACE. TOLERATING FLD SO ADVANCED TO SOFT. INCONTINENT OF BLADDER AND STOOL. ATTENDS IN PLACE. Q2H TURNS. EEG MONITOR SETTING UP AT BEDSIDE. NO ACUTE CONCERNS AT THIS TIME. WILL CONTINUE PLAN OF CARE UNTIL REPORT GIVEN TO DAYSHIFT RN.
--- NOTE | 2021-03-31 16:49 | NUR ---
TRANSFER TO [facility]. REPORT CALLED TO RECEIVING RN. ALL BELONGINGS SENT WITH PT. VS REMAIN STABLE, NO S/S OF DISTRESS.
--- NOTE | 2021-03-31 17:01 | NUR ---
ASSUMED CARE: REPORT FROM BHARGAVI, RN. PT TRANSFERRED TO ROOM FROM PCU 8 VIA BED. MOTOR TRANSPORT INSPECTOR AT BEDSIDE PERFORMING VITALS. PT VERBAL AT TIMES AND NODS TO YES/NO QUESTIONS. BED ALARM ON. NO ACUTE NEEDS OR CONCERNS AT THIS TIME.
--- NOTE | 2021-04-01 05:36 | NUR ---
PATIENT IS CONFUSEDF AND ORIENTED ONLY TO SELF. PATIENT HAS BEEN IMPULSIVE AND STILL TRYING TO CLIMB OUT THE BED EVEN WITH SOFT RESTRAINTS. tHE PATIENT IS CURSING AT STAFF AND ATTEMOTING TO STRIKE WELL.
--- NOTE | 2021-04-01 17:33 | NUR ---
SHIFT SUMMARY PT WAS COOPERATIVE THIS SHIFT AND RESTRAINTS WERE REMOVED. HE WAS ABLE TO GET UP TO THE BEDSIDE COMMODE WITH 2 ASSIST. RM AIR, NO PAIN OR SOB, AND SPENT MOST OF THE DAY SLEEPING. PT IS CONFUSED ORIENTED TO SELF ONLY. HE IS AWATING PLACEMENT. WILL CONTINUE TO MONITOR.
--- NOTE | 2021-04-02 04:28 | NUR ---
Patient was still somewhat impulsive. He attempted to sit up on the side of the bed to get to the bedide commode. He was unable to support himself and was assited by staff.atient has not been eating or drikug well. He also has had minimal urine output over night. Bladder scan showed 336ml.
[2021-04-02] MEDS ORDERED: ERGO50000 PO (09:51)
[2021-04-02] MEDS ORDERED: PRAMIPEXOLE DIHY1 MG PO (09:54)
[2021-04-02] MEDS ORDERED: Vitamin B-650 MG PO (09:55)
--- NOTE | 2021-04-02 18:28 | NUR ---
SHIFT SUMMARY PATIENT ALERT, ORIENTED X2 THIS SHIFT. PATIENT ANSWERS SOME ORIENTATION QUESTIONS THEN FORGETS ANSWERS. PATIENT UNABLE TO FOLLOW A CONVERSATION FOR LONGER THAN 15-30 SECONDS. PATIENT REMAINS FLACID ON L SIDE. PATIENT UP WITH PT THIS SHIFT. PATIENT UNABLE TO URINATE THIS SHIFT, ALTHOUGH HE STATES HE FEELS THE URGE. BLADDER SCANNED AT >450 MLS. NOTIFIED, ORDER FOR STRAIGHT CATH RECEIVED. PATIENT CATHED, 425 URINE OUTPUT IN CATH. PATIENT CURRENTLY LYING IN BED WATCHING TELEVISION.
--- NOTE | 2021-04-03 05:20 | NUR ---
Patient was calm and cooperate most of the shift. He did attempt to climb out the bed once but was easily directable. Fluids were encouraged and the patient did drink. However he was still unable to void. Bladder scan showed 270ml in his bladder. .
--- NOTE | 2021-04-03 05:55 | NUR ---
Patient was able to void. Voided 250ml. Fluids encouraged.
--- NOTE | 2021-04-03 18:52 | NUR ---
PT IS LYING IN BED, HE IS VERY PLEASANT. A/O X2. PT VOIDED TODAY-2 WET DIAPERS. NO COMPLAINTS. NO SINS OF ACUTE DISTRESS. REPORT GIVEN TO SHORE HAND DREDGE OR BARGE NURSE
--- NOTE | 2021-04-04 04:06 | NUR ---
PATIENT BECAME VERY IMPULSIVE AND AGGITTATED AT BED TIME. hE WAS ATTEMPTING TO GET OUT OF THE BED AND LEAVE. WAS ASKING FOR HIS WHEELCHAIR AND ASKED FOR THE CHARGE NURSE. DR Noland WAS CONTACTED AND GAVE ORDER FOR ABIEN 10MG ONE TIME DOSE. PATIENT IS RESTING COMFORTABLE.
--- NOTE | 2021-04-04 08:05 | NUR ---
DR. LUTZ NOTIFIED V.S. [id number]/74-75. HOLD B.P. MEDS AND RECHECK V.S AT 10AM
--- NOTE | 2021-04-04 17:52 | NUR ---
no changes from last note. [email or web address] assist to [email or web address]
--- NOTE | 2021-04-05 04:23 | NUR ---
PATIENT HAS BEEN CALM AND COOPERATIVE DURING THE SHIFT. HIS SPEECH IS APPROPRIATE. HE IS ALSO ABLE TO FOLLOW SOME BASIC COMMANDS. EXHIBITED FEWER IMPULSIVE MOMENTS. PATIENT IS STILL AWAITING PLACEMENT.
--- NOTE | 2021-04-05 15:15 | NUR ---
TALKED TO DR. LUTZ ABOUT PATIENT HAVING VISUAL HALLUCINATIONS LAST NIGHT AND THIS AM--"LOTS OF SMOKE IN ROOM". DID NOT SAY HE DIDN'T SLEEP LAST NIGHT. PER MD MELATONIN 5 MG QHS PRN. PATIENT WANTS IV OUT AND HAS NOT GOTTEN ANYTHIGN IN IT FOR 6 DAYS. OK TO D'C AND DC IV ZOFRAN WHICH HE HAS NOT GOTTEN
--- NOTE | 2021-04-05 16:09 | NUR ---
BLADDER SCAN 501 ML. UP TO BSC TO SEE IF CAN PRODUCE URINE.
--- NOTE | 2021-04-05 16:16 | NUR ---
ALERT. ORIENTED. POWERGLIDE D'C NO BLEEDING OR BRUISING AT SITE BUT BRUISING ANTERIOR TO SITE. PATIENT ABLE TO URINATE WHEN ASSISTED TO BSC. REPOSITIONS SELF. UNLABORED RESPIRATIONS. POOR APPETITE. COOPERATIVE. SPEAKS IN LOW WHISPER. NO ACUTE CHANGES. WCTM
--- NOTE | 2021-04-06 05:30 | NUR ---
PT. WAS CONFUSED AND NERVOUS AT THE START OF THIS SHIFT. PT. WAS REASSURED THEIR LOCATION AND MEDICATED PER EMAR. PT. WAS ABLE TO ADJUST TO A NEW ENVIRONMENT AND RESTED SOME THIS SHIFT. WILL CONTINUE TO MONITOR UNTIL REPORT IS GIVEN.
--- NOTE | 2021-04-06 06:04 | NUR ---
PT. REFUSED BLADDER SCAN X 2 STATING, THIS NURSE WAS TRYING TO KILL THEM.
--- NOTE | 2021-04-06 17:15 | NUR ---
SUMMARY PT RESTING IN BED WATCHING TV, PT HAS BEEN PLEASANT AND COOPERATIVE T/O THE DAY, PT WORKED WITH THERAPY, HAS BEEN UP TO THE CHAIR, HAS BEEN UP TO THE COMMODE, PT DID NEED TO BE STRAIGHT CATH'D TO VOID, PT MACIE WELL, PT IS FORGETFUL BUT COOPERATIVE, NEEDS MEALS SET UP AND IS ABLE TO TAKE HIS PILLS WHOLE, VSS, NO COMPLAINTS, WILL CONT TO MONITOR
--- NOTE | 2021-04-07 03:51 | NUR ---
PT. AOX2 AND MORE ALERT AT THE START OF THIS SHIFT. SOME CONFUSION IS STILL PRESENT AT TIMES BUT STILL ABLE TO EXPRESS NEEDS. PT. C/O PAIN IN LEFT ANKLE AND HAD A SLIGHT FEVER. PT WAS MEDICATED PER EMAR AND ICE BAG APPLIED TO ANKLE. THIS NURSE EXPLAINED THE IMPORTANCE OF PERFORMING THE BLADDER SCAN IF NO URINE IS PRODUCED THIS SHIFT, PT VERBALIZED UNDERSTANDING. PT. HAS BEEN UP AND SOME OF THIS SHIFT AND THIS NURSE WILL CONTINUE TO MONITOR.
--- NOTE | 2021-04-07 17:15 | NUR ---
DAY SHIFT SUMMARY PT PLEASANT, SOFT SPOKEN, PLEASANTLY CONFUSED. COOPERATIVE WITH CARE. BLADDER SCAN WITH 395ML URINE. WILL STRAIGHT CATH IF/WHEN PT REACHES VOLUME OF GREATER THAN 450ML. CALL LIGHT IN REACH OF PT. 1-2 PERSON ASSIST TO BSC.
--- NOTE | 2021-04-08 00:25 | NUR ---
PT RESTLESS AND HAS INCREASED CONFUSION, STATING, "I AM NOT SICK OR IN THE HOSPITAL!" STAFF AND THIS NURSE HAS ENCOURAGED FLUIDS TO HELP URINATE. WILL CONTINUE TO MONITOR.
--- NOTE | 2021-04-08 05:51 | NUR ---
SHIFT SUMMARY PT. WAS RETLESS, EVEN WITH PRN TO HELP PROMOTE REST, AND WAS AWAKE MOST OF THIS SHIFT. PT. HAS INCREASED CONFUSION STATING, "I AM NOT IN A HOSPITAL AND I'M NOT SICK!" PT WOULD FORGET THAT THEY HIT THE CALL LIGHT BUT DENIES ANY NEEDS WHEN STAFF ARRIVES. PT. CURRENTLY LAYING IN WATCHING TV AND THIS NURSE WILL CONTINUE TO MONITOR UNTIL REPORT IS GIVEN.
--- NOTE | 2021-04-08 15:58 | NUR ---
DAY SHIFT SUMMARY PLEASANT 65 YR OLD MALE WITH HISTORY OF CVA. LT SIDED WEAKNESS, CONTRACTURE TO LEFT WRIST AND LT ANKLE. SMALL SCAB FORMED ON OUTER SIDE OF LT ANKLE, DRESSED WITH MEPILEX FOR COMFORT AND PROTECTION. PT STATES HE HAS RESTLESS LEGS AND THE ANKLE RUBS ON THE BLANKET. FRAGILE SKIN WITH SCATTERED BRUISING. SLIGHT CONFUSION, TAKES MEDS WHOLE WITH APPLESAUCE, 1-2 PERSON ASSIST WITH GAIT BELT TO BS. RA. CALL LIGHT WITHIN REACH.
--- NOTE | 2021-04-09 06:19 | NUR ---
SHIFT SUMMARY PT. AOX1 AND VERY CONFUSED AT THE START OF THIS SHIFT. PT. C/O NOT BEING ABLE TO REST AT NIGHT AND WAS MEDICATED PER EMAR. PT. STILL DID NOT REST WELL THIS SHFIT AND HAD TO BE STRAIGHT CATH PER BLADDER SCAN ORDER. PT. TOLERATED WELL AND DENIES ANY NEEDS AT THE MOMENT. WILL CONTINUE TO MONITOR UNTIL REPORT IS GIVEN.
--- NOTE | 2021-04-09 17:04 | NUR ---
SHIFT SUMMARY PATIENT DENIES PAIN, NAUSEA, AND SHORTNESS OF BREATH. PATIENT IS A 1 PERSON ASSIST TO THE BSC. PATIENT AGGITATED TODAY ABOUT STILL BEING IN THE HOSPITAL. PATIENT REFUSED TO WORK WITH PT. BLADDER SCAN SHOWED 285ML. PATIENT ABLE TO URINATE IN URINAL MOST OF SHIFT. PATIENT IS EATING AND DRINKING WELL. PATIENT IS COOPERATIVE WITH CARE. PATIENT IS CALLING APPROPRIATELY.
--- NOTE | 2021-04-09 23:37 | NUR ---
SPOKE WITH DR BERKOWITZ REGARDING PT'S FALL. NO INJURIES.
--- NOTE | 2021-04-10 05:14 | NUR ---
SHIFT SUMMARY PT. AOX1 AND INCREASED BEHAVIORS AND CONFUSION THIS SHIFT. PT. KEPT YELLING OUT THINGS THAT WERE NOT CLEAR AND HAVING HALLUCINATIONS. THE PT. WAS EATING CANDY AT THE START OF THIS SHIFT AND COULD NOT TELL THIS NURSE THE DATE OR YEAR. PT C/O ANKLE PAIN AND LEG STIFFNESS, THIS NURSE MEDICATED PER EMAR. SHORTLY AFTER MAKING ROUNDS THE PT WAS FOUND ON THE FLOOR, STATING, "I GUESS I FORGOT I COULDN'T WALK AND WHERE I AM." PT. HAD NO INJURIES NOTICED AND WAS ASSITED BACK IN BED TO BE CLEANED UP FROM SITTING IN URINE AND BM. THE PT. RESTED SOME BUT EACH TIME THEY WOKE UP THEY BECAME MORE CONFUSED. PT. BECAME AGIATATED AND RESTLESS INSISTING THAT THEY COULD GET OUT OF BED AND WALK OUT THE DOOR. AFTER NOT BEING ABLE TO REDIRECT THE PT. A NEW ORDER WAS GIVEN PER EMAR. PT. TOLERATED WELL AND WAS ABLE TO CALM DOWN TO REST. PT CURRENTLY IN BED BACK ASLEEP WITH RISE AND FALL OF CHEST, THIS NURSE WILL CONTINUE TO MONITOR UNTIL REPORT IS GIVEN.
[2021-04-10 06:09] LABS: Albumin, Blood 3.5 g/dL (3.4-5.0); Anion Gap 5 mmol/L (6-16); Blood Urea Nitrogen 38 mg/dL (8-24); Bun/Creatinine Ratio 24.7 (12.0-20.0); CO2, Blood 24 mmol/L (21-32); Calcium, Blood 9.2 mg/dL (8.5-10.1); Chloride, Blood 115 mmol/L (98-108); Creatinine, Blood 1.54 mg/dL (0.60-1.20); Glomerular Filtration Rate 46 (60-); Glucose, Blood 99 mg/dL (70-99); Magnesium, Blood 2.3 mg/dL (1.6-2.4); Phosphorus, Blood 4.5 mg/dL (2.5-4.9); Potassium, Blood 4.5 mmol/L (3.5-5.5); Sodium, Blood 144 mmol/L (136-145)
--- NOTE | 2021-04-10 17:18 | NUR ---
SHIFT SUMMARY PATIENT DENIES PAIN, NAUSEA, AND SHORTNESS OF BREATH. PATIENT REFUSED BREAKFAST. PATIENT STATED HE "FEELS SAD BEING STUCK IN THE HOSPITAL". PATIENT IS A 1 PERSON TRANSFER. PATIENT WORKED WITH OT TODAY AND SAT UP IN THE CHAIR FOR AWHILE. THIS SEEMED TO LIFT HIS SPIRITS. PATIENT ATE LUNCH AND DINNER WELL. PATIENT IS PLEASANT AND COOPERATIVE WITH CARE.
--- NOTE | 2021-04-11 05:40 | NUR ---
SHIFT SUMMARY PT AOX1 AND WAS COOPERATIVE AT THE START OF THIS SHIFT. PT BECAME AGITATED WITH STAFF BUT WAS STILL ALSEEP. PT JUST SAT UP IN BED AND BEGAN YELLING ABOUT WALLKING ON THEIR OWN. PT. NOT EASY TO REDIRECT THIS SHIFT AND WAS DELUSIOANL WHEN AWAKE. WILL CONTINUE TO MONITOR UNTIL REPORT IS GIVEN.
--- NOTE | 2021-04-11 16:15 | NUR ---
PATIENT A/O X2-3 THIS SHIFT. CALM AND COOPERATIVE WITH CARE. CONTINUES TO HAVE A POOR APPETITE. INSPECTOR AIR CARRIER CAME TO SPEAK WITH PATIENT TODAY ABOUT FOOD LIKES AND DISLIKES TO HELP IMPROVE INTAKE. VSS, ON RA. NO IV SITE. MEDICALLY CLEARED PER MD NOTED, [facility].
--- NOTE | 2021-04-12 07:32 | NUR ---
HERB SAT UP ON HIS BED ALMOST ALL NIGHT. HE HAD NO COMPLAINTS OF PAIN OR DISCOMFORT. 2 LARGE EPISODES OF INCONTINENCE OVERNIGHT
--- NOTE | 2021-04-12 17:38 | NUR ---
NO ACUTE CHANGES THIS SHIFT. PATIENT AWAITING MEDICAID APPROVAL AND PLACEMENT. PATIENT UP TO CHAIR TODAY WITH 2 MAX STAND PIVOT TRANSFER. VSS, ON RA. CALM AND COOPERATIVE WITH CARE. CONTINUES TO HAVE A POOR APPETITE. MEDICATED X1 WITH TYLENOL FOR A HEADACHE WITH STATED RELIEF. USING CALL LIGHT APPROPRIATELY FOR ASSISTANCE.
--- NOTE | 2021-04-12 21:25 | NUR ---
PATIENT REFUSING HS MEDICATIONS DUE TO HEARTBURN "BECAUSE HE'S SAD". LATER STATED HE ATE SOME GREEN PEPPERS YESTERDAY, AND HAS BEEN BOTHERED SINCE. AWAITING CALL TO HOSPITALIST PATIENT IS REQUESTING ORAL HEARTBURN MEDICATION. "PEPTO BISMOL"
--- NOTE | 2021-04-13 04:02 | NUR ---
AGAIN, HERB SLEPT INTERMITTANTLY WHILE WATCHING THE TV ALL NIGHT. HE HAD REFUSED ALL OF HIS HS MEDS DUE TO HIS "CHRONIC HEARTBURN". mAALOX PLUS WAS ORDERED AND GIVEN, UNFORTUNATELY, BY THE TIME PATIENT WAS COMFORTABLE ENOUGH TO TAKE MEDS, HE REFUSED. NO COMPLAINTS OF PAIN OR DISCOMFORT OTHER THAN ABOVE OVERNIGHT
--- NOTE | 2021-04-13 16:26 | NUR ---
SHIFT SUMMARY PATIENT IS ALERT AND ORIENTED X2-3. PATIENT TOOK HIS MEDICATIONS WHOLE WITH WATER WITHOUT INCIDENT. PATIENT HAS HAD NO COMPLAINTS OF PAIN, NAUSEA, SOB OR VOMITTING THIS SHIFT. VITAL SIGNS REVIEWED. NO ACUTE EVENTS THIS SHIFT. PATIENT IS STABLE FOR DISCHARGE PER DR BUT NEEDS CARE AT HOME FIRST. CALL LIGHT IN PLACE. WILL MONITOR UNTIL SHIFT CHANGE.
--- NOTE | 2021-04-14 03:56 | NUR ---
PATIENT HAS HAD AN UNEVENTFUL NIGHT. PLEASANT AND COOPERATIVE WITH STAFF AT START OF SHIFT, TOOK MEDICATIONS PER EMAR AND THEN WENT TO SLEEP FOR THE REMAINDER OF THE NIGHT. NO C/O PAIN OR DISCOMFORT. VITALS ARE STABLE. PATIENT ASLEEP IN HIS ROOM AT THIS TIME; CALL LIGHT WITHIN REACH.
--- NOTE | 2021-04-14 16:13 | NUR ---
SHIFT SUMMARY PATIENT IS ALERT AND ORIENTED X2-3. PATIENT HAS NOT HAD ANY COMPLAINTS OF PAIN, NAUSEA, VOMITTING, SOB THIS SHIFT. NO ACUTE EVENTS THIS SHIFT. PATIENT IS MEDICALLY STABLE AND AWAITING PLACEMENT PER DR NOTES. CALL LIGHT IN PLACE. WILL MONITOR UNTIL SHIFT CHANGE.
--- NOTE | 2021-04-15 04:31 | NUR ---
PATIENT HAD A MOSTLY UNEVENTFUL NIGHT. TOOK MEDICATIONS AND TOLERATED WELL. PATIENT HAD ONE EPISODE OF TRYING RTO CLIMB OUT OF BED TO PUT HIMSELF ON THE FLOOR. ALTHOUGH HE WAS RESISTANT BUT DID FOLLOW DIRECTIONS AND GOT BACK INTO BED PROPERLY. WILL CONTINUE TO MONITOR PATIENT UNTIL SHIFT IS OVER. CALL LIGHT IN REACH BED IN LOWEST POSITION.
--- NOTE | 2021-04-15 08:00 | NUR ---
pt up to bsc, a/ox2 ,flat affect, cooperative with care, follows commands well, lungs are clear/dim t/o, resp even and unlabored, no cough noted, hrr, no edema noted, ppp+1, cap refill <3sec, vs stable, afebrile, btx4, abd flat soft nontender, voids via bsc and some incon with attends in place, skin has a tiny healing wound to l ankle, lidocane patch to be placed on ankle, left side is flacid, is a two person to transfer, boo, call light in reach, does take po meds without diff.
--- NOTE | 2021-04-15 18:04 | NUR ---
Pt had no acute changes this shift, minimal needs. has been calm, does express desire to go home. call light in reach.
--- NOTE | 2021-04-16 04:08 | NUR ---
PATIENT HAS HAD AN UNEVENTFUL SHIFT. A&O X4. PATIENT IS VERY ANXIOUS OVER HAVINF BEEN IN THE HOSPITAL THIS LONG. HE IS CONCERNED ABOUT HIS MOTHER. PATIENT IS AWAITING PLACEMENT. VITALS REVIEWED, WILL CONTINUE TO MONITOR UNTIL SHIFT CHANGE.
--- NOTE | 2021-04-16 18:29 | NUR ---
SHIFT SUMMARY PT UP TO CHAIR FOR MEALS. NO BM SINCE 04/09. BOWEL CARE GIVEN AND "BROWN COW" WELL WITH NO RESULTS AT THIS TIME. 2 PERSON STAND PIVOT TRANSFER WITH MOVE FROM BED TO CHAIR. SAYS CHAIR IS UNCOMFORTABLE AND RECLINER IS WORSE. L ARM FLACCID AND NOT ABLE TO BEAR WT ON LLE. VOICE SOFT AND AT TIMES HARD TO HEAR.
--- NOTE | 2021-04-17 04:27 | NUR ---
PATIENT A&O X2 PERSON AND PLACE. PATIENT EXPRESSED FRUSTRATION OVER LEGTH OF STAY. SOFT SPOKEN AND WITHDRAWN BUT COOPERATIVE WITH CARE. VITALS REVIEWED. WILL CONTINUE TO MONITOR.
--- NOTE | 2021-04-17 18:16 | NUR ---
SHIFT SUMMARY PT IN BED MOST OF DAY DUE TO HIM NOT WANTING TO GET OOB. SITTING UP AND LAYING DOWN INDEPENDENTLY IN BED. MEPILEX APPLIED TO L OUTER ANKLE BONE AFTER SPEAKING AND SHOWING DR. BERKOWITZ. TYLENOL GIVEN THIS MORNING FOR PAIN TO ANKLE WITH RELIEF. PLACEMENT BEING ADDRESSED BY CARE MANAGERS.
--- NOTE | 2021-04-18 05:18 | NUR ---
PATIENT HAS BEEN A&o X4. VOIDING TO URINAL. SLIGHTLY WITHDRAWN BUT MAKES NEEDS KNOWN. PATIENT IS AWAITING PLACEMENT.
--- NOTE | 2021-04-18 18:40 | NUR ---
SHIFT SUMMARY: PT IS WITHDRAWN AND APPEARS DEPRESSED, REFUSING TO EAT. TOLD THE LINING LAYER THAT HE FELT THAT "THEY JUST PUT ME IN THIS BED AND LEFT ME HERE. WHAT'S GOING TO HAPPEN TO ME?" THIS AUTHOR SPOKE TO CARE MANAGEMENT AND GOT UPDATE OF PT'S STATUS WITH MEDICAID AND THAT THEY ARE UNABLE TO REACH PT'S SISTER. RELAYED THIS INFORMATION TO PATIENT. AFTER THIS, PT REQUESTED "ASSISTED SUICIDE." HE IS BEING OBSERVED BY REMOTE MONITORING AND DENIED ACTIVE SI. THIS INFORMATION RELAYED TO DR. BERKOWITZ IN PERSON. NO BM DOCUMENTED SINCE 04/09; GAVE BOWEL MEDS WITH NO RESULT. MAY NEED FURTHER INTERVENTION. DID NOT GET OOB TODAY.
--- NOTE | 2021-04-19 06:35 | NUR ---
PATIENT HAS BEEN AGGITATED ALL SHIFT. PATIENT IS UPSET OVER HIS LENGTH OF STAY. THREW URINAL AT STAFF. WAS DIFFICULT TO REDIRECT AND THREATENED TO BECOME NASTY WITH STAFF. VITALS REVIEWED.
--- NOTE | 2021-04-19 17:33 | NUR ---
PT CALM AND COOPERATIVE TODAY. WORKED WITH THERAPIES TODAY, UP TO A WHEELCHAIR AND DID GO TO THE WINDOW AT THE END OF THE [place] AND BACK, NO ACUTE CHANGES NOTED THIS SHIFT, WILL CONTINUE TO MONITOR AND REPORT TO ONCOMING RN.
--- NOTE | 2021-04-20 04:42 | NUR ---
HECTOR'S VITALS REMAINED STABLE OVERNIGHT. HE VOIDED AT THE BEGINNING OF THE SHIFT (ABOUT 200ML). HE WAS A LITTLE BIT RESTLESS AROUND 1AM BUT EVENTULALLY WENT BACK TO SLEEP. HE WAS BLADDER SCANNED AT 0449 (ONLY 73ML).
--- NOTE | 2021-04-20 18:14 | NUR ---
PT AAOX 3, ABLE TO MAKE NEEDS KNOWN. COMPLIANT WITH MEDICATION REGIMEN. NO COMPLAINTS VOICED. BED IN LOWEST POSITION. CALL LIGHT IN REACH.
--- NOTE | 2021-04-21 04:21 | NUR ---
HECTOR REMAINED STABLE DURING THE ENTRY LEVEL WEB DEVELOPER. HAD A MEDIUM AND SMALL BM.RECEIVED A BATH. HE HAD A RESTFUL NIGHT
[2021-04-21 04:41] LABS: Hematocrit 35.8 % (37.0-53.0); Hemoglobin 11.7 g/dL (13.5-17.5); Mean Corpuscular HGB 31.3 pg (26.0-34.0); Mean Corpuscular HGB Conc 32.7 g/dL (31.5-36.5); Mean Corpuscular Volume 96 fL (80-100); Mean Platelet Volume 9.6 fL (9.1-12.4); Platelet Count 213 K/mm3 (150-400); RDW Coefficient Variation 12.7 % (11.7-14.2); RDW Standard Deviation 44.6 fL (35.1-46.3); Red Blood Cell Count 3.74 M/mm3 (4.30-5.90); White Blood Cell Count 7.96 K/mm3 (4.00-11.30)
[2021-04-21 04:53] LABS: Albumin, Blood 2.9 g/dL (3.4-5.0); Anion Gap 6 mmol/L (6-16); Blood Urea Nitrogen 37 mg/dL (8-24); Bun/Creatinine Ratio 24.2 (12.0-20.0); CO2, Blood 23 mmol/L (21-32); Calcium, Blood 8.6 mg/dL (8.5-10.1); Chloride, Blood 114 mmol/L (98-108); Creatinine, Blood 1.53 mg/dL (0.60-1.20); Glomerular Filtration Rate 46 (60-); Glucose, Blood 98 mg/dL (70-99); Phosphorus, Blood 3.7 mg/dL (2.5-4.9); Potassium, Blood 3.5 mmol/L (3.5-5.5); Sodium, Blood 143 mmol/L (136-145)
--- NOTE | 2021-04-21 19:16 | NUR ---
PT AAOX 2-3 ABLE TO MAKE NEEDS KNOWN. COMPLIANT WITH MEDICATION REGIMEN. ASSISTANCE GIVEN WITH ADL'S TOLERATED WELL. BED IN LOWEST POSITION. CALL LIGHT IN REACH.
--- NOTE | 2021-04-22 04:44 | NUR ---
HECTOR REMAINED STABLE ALL SHIFT. HAD A RESTFUL NIGHT. SLEPT MORE THAN USUAL
--- NOTE | 2021-04-23 04:10 | NUR ---
PATIENT WAS ALERT AND ORIENTED X2, SOFT SPOKEN BUT ABLE TO CO,,UNICATE HIS NEESD. PATIENT DEINES ANY PAIN. PATIENT SLEPT THROUGH THE NIGHT. CALL LIGHT IN PLACE AND BED TO THE LOWEST POSTION
--- NOTE | 2021-04-23 14:42 | NUR ---
SHIFT SUMMARY PT RESTING QUIETLY AT START OF SHIFT. WOKE EASILY FOR CARE. PT ABLE TO FEED HIMSELF. TAKES MEDS WHOLE W/O DIFFICULTY. L SIDE FLACCID D/T HX CVA. PT WAITING PLACEMENT/GUARDIANSHIP. USING URINAL AT BS. NO C/O. CALL LT IN REACH. BED ALARM ON FOR SAFETY.
--- NOTE | 2021-04-24 04:20 | NUR ---
SHIFT SUMMARY AOX3, MILD FORGETFULNESS. VSS. SLEPT WELL T/O NIGHT. PLEASENT & COOPERATIVE c CARE. DENIES PAIN, N/V OR SOB. L SIDE FLACCID FROM HX CVA. REPORTS FEELING IRRITATED ABOUT STILL BEING IN HOSPITAL & WANTS TO LEAVE, TALKED TO PATIENT ABOUT CASE MANAGEMENT HELPING c SAFE DC PLAN. CALL LIGHT IN REACH & PT ABLE TO MAKE NEEDS KNOWN. WCTM.
--- NOTE | 2021-04-24 15:59 | NUR ---
PT IS A/OX3, PLEASANT AND COOOPERATIVE, THE PT HAS BEEN BEDREST TODAY. THE PT SITS UP IN BED AND REPOSITIONS HIMSELF FREQUANTLY. THE PT REPORTED HAVING JOINT PAIN THIS AM TYLENOL WAS GIVEN. THE PT APPEARS TO BE BREATHING EASILY ON RA. PT HAS A POOR APPETITE. USES THE URINAL AT THE BEDSIDE. CALL LIGHT IN REACH WILL CONTINUE TO MONNITOR AND ASSESS FOR CHANGES
--- NOTE | 2021-04-25 04:19 | NUR ---
SHIFT SUMMARY NO ACUTE CHANGES THIS SHIFT. AOX3. VSS. DENIES PAIN, N/V OR SOB. IRRITABLE ABOUT BEING IN HOSPITAL & UNABLE TO PERFORM OWN ADLS. APPLIED BED TRAPEZE SO PT CAN REPOSITION HIMSELF MORE EASILY. AWAITING SAFE DC PLAN. CALL LIGHT IN REACH. WCTM.
[2021-04-25] MEDS ORDERED: Seroquel Xr50 MG PO (10:54)
[2021-04-25] MEDS ORDERED: ASPI81CH PO (10:54)
[2021-04-25] MEDS ORDERED: TAMS.4ER PO (10:54)
[2021-04-25] MEDS ORDERED: TOPI25 PO (10:55)
--- NOTE | 2021-04-25 16:22 | NUR ---
PT DISCHARGED THE PT VERBALIZED UNDERSTANDING OF THE PTS DC INSTRUCTIONS. THE PT APPEARED TO BE BREATHING EASILY ON RA . THE MD WAS CONTACTED TO ESTABLISH A FOLLOW UP APPOINTMENT WITH THE PT. [facility] WAS CONTACTED TO REESTABLISH HOME HEALTH WITH THE PT. THE PT WAS TRANSFERED VIA WHEELCHAIR ACCOMPANIED BY [employer]. BELONGINGS RELEASED TO THE PT
--- NOTE | 2021-04-26 12:03 | NUR ---
Patient is a [facility] patient who was transferred to [facility] on 03/29/2021 due to toxic metabolic encephalopathy. Patient discharged yesterday- 04/25/2021 with resumption of home health orders. Gathered supporting documentation for resumption (face sheet, discharge order, med list, and H&P) and faxed to [facility] for review. No further interventions required. [facility] Referral Liaison
== END 2021-04-25 16:17 | disposition home health service (06) | DRG 100 ==
LOC: ER 09:04 → MEDS 13:57 → PCU 13:57 → MEDS 03-31 16:50
PROVIDERS: Emergency Medicine; Internal Medicine; Nurse Practitioner Acute Care; ADMIT Internal Medicine
PROC: 009U3ZX Drainage of Spinal Canal, Percutaneous Approach, Diagnostic (ICD-10-PCS; principal; 2021-03-29)
DX: G40.909 Epilepsy, unspecified, not intractable, without status epilepticus (principal); G92.8 Other toxic encephalopathy; R65.11 Systemic inflammatory response syndrome (SIRS) of non-infectious origin with acute organ dysfunction; N17.9 Acute kidney failure, unspecified; I69.354 Hemiplegia and hemiparesis following cerebral infarction affecting left non-dominant side; I73.9 Peripheral vascular disease, unspecified; Z66 Do not resuscitate; N40.1 Benign prostatic hyperplasia with lower urinary tract symptoms; Z20.822 Contact with and (suspected) exposure to COVID-19; R33.8 Other retention of urine; F01.50 Vascular dementia, unspecified severity, without behavioral disturbance, psychotic disturbance, mood disturbance, and anxiety; E86.0 Dehydration; Z98.890 Other specified postprocedural states; Z89.422 Acquired absence of other left toe(s); Z79.899 Other long term (current) drug therapy; Z79.82 Long term (current) use of aspirin; F17.210 Nicotine dependence, cigarettes, uncomplicated; L89.512 Pressure ulcer of right ankle, stage 2
CPT/HCPCS: 0241U; 36415; 51701; 62270; 70450; 71045; 80048; 80053; 80069; 80201; 81001; 82140; 82803; 82945; 83605; 83735; 84145; 84146; 84157; 84443; 85025; 85027; 85651; 86140; 87040; 87070; 87205; 87483; 89051; 92523; 93005; 93010; 94760; 95819; 96374-59; 97162; 97166; 97530; 97535; 99285-25; A9270; C1751; G0480; J1630; J1650; J2405; J3475; J7120

== ENCOUNTER → 2022-01-09 | Outpatient (CLI) | payer MEDICARE, OTHER ==
[~2022-01-09] MED LIST changes: +CEPH500 PO; +ERGO50000 PO; +PRAMIPEXOLE DIHY1 MG PO; +Seroquel Xr50 MG PO; +TAMS.4ER PO; +Vitamin B-650 MG PO
[2022-01-09 10:40] LABS: Hematocrit 38.6 % (37.0-53.0); Hemoglobin 12.8 g/dL (13.5-17.5); Mean Corpuscular HGB 30.6 pg (26.0-34.0); Mean Corpuscular HGB Conc 33.2 g/dL (31.5-36.5); Mean Corpuscular Volume 92 fL (80-100); Mean Platelet Volume 10.5 fL (9.1-12.4); Platelet Count 222 K/mm3 (150-400); RDW Coefficient Variation 12.4 % (11.7-14.2); RDW Standard Deviation 41.7 fL (35.1-46.3); Red Blood Cell Count 4.18 M/mm3 (4.30-5.90); White Blood Cell Count 8.11 K/mm3 (4.00-11.30)
[2022-01-09 10:55] LABS: Albumin, Blood 3.2 g/dL (3.4-5.0); Bilirubin, Total 0.5 mg/dL (0.1-1.0); Bun/Creatinine Ratio 27.6 (12.0-20.0); Calcium, Blood 8.7 mg/dL (8.5-10.1); Creatinine, Blood 1.27 mg/dL (0.60-1.20); Globulin, Blood 3.3 g/dL (2.2-4.0); Potassium, Blood 3.9 mmol/L (3.5-5.5); Total Protein, Blood 6.5 g/dL (6.4-8.2)
== END ==
LOC: LAB RH 10:03 → EDSTATUS 11:55
PROVIDERS: Internal Medicine
DX: I67.9 Cerebrovascular disease, unspecified (principal); I25.10 Atherosclerotic heart disease of native coronary artery without angina pectoris
CPT/HCPCS: 80053; 85027

== ENCOUNTER 2022-03-31 06:41 | Emergency (ER) | payer OTHER | END 2022-03-31 12:06 | disposition home or self-care (01) | DX: M25.552 Pain in left hip (principal); W18.30XA Fall on same level, unspecified, initial encounter; I12.0 Hypertensive chronic kidney disease with stage 5 chronic kidney disease or end stage renal disease; N18.6 End stage renal disease; F17.210 Nicotine dependence, cigarettes, uncomplicated; I69.354 Hemiplegia and hemiparesis following cerebral infarction affecting left non-dominant side; Z99.3 Dependence on wheelchair; Z79.899 Other long term (current) drug therapy; Z79.82 Long term (current) use of aspirin ==